=== PATIENT | male | born 1955 | race Caucasian/White ===

== ENCOUNTER 2018-04-06 04:21 | Observation (INO) | payer OTHER, SELFPAY ==
[2018-04-06] VITALS (9 sets, daily range): BP systolic 141–187; BP diastolic 81–94; PULSE 58–77; RESP 12–18; TEMP 36.3–36.8; O2SAT 95–100; BMI 29.5; BMI 29.4
--- NOTE | 2018-04-06 04:23 | RAD_ITS ---
STUDY: X-RAY CHEST REASON FOR EXAM: Male, 62 years old. Chest pressure, diaphoresis. TECHNIQUE: PA and lateral chest. COMPARISON: CT chest November 02, 2016. FINDINGS: The lungs are clear and expanded. There is no demonstrated pleural abnormality. Normal size heart. Normal mediastinum and caity. Normal visualized pulmonary arteries. Normal visualized aortic arch and descending thoracic aorta. Degenerative changes of the thoracic spine. Normal visualized ribs, clavicles, and shoulders. There is no demonstrated abnormality of the visualized soft tissue structures of the upper abdomen. RAD/Chest PA and Lateral IMPRESSION: No acute cardiopulmonary disease. Electronically Signed: Colin Ngo MD at 5:06 EDT , Service support ,
--- NOTE | 2018-04-06 04:23 | EKG12_ITS ---
Test Reason : CP Blood Pressure : / mmHG Vent. Rate : 077 BPM Atrial Rate : 077 BPM P-R Int : 154 ms QRS Dur : 084 ms QT Int : 378 ms P-R-T Axes : -23 005 061 degrees QTc Int : 427 ms Normal sinus rhythm Normal ECG Confirmed by MENDOZA BILLINGS, ONUR ([id number]), dictionary editor PATSY HEMPHILL ([id number]) on 04/07/2018 9:08:05 AM Referred By: HATTIE Confirmed By:ONUR DONALDSON MD
[2018-04-06] MEDS: Aspirin 81 MG TAB.CHEW 324 MG PO (04:31)
[2018-04-06 04:42] LABS: Absolute Lymphocyte Count 3.49 X10^3/ul (0.83-4.51); Absolute Neutrophil Count 3.6 X10^3/uL (2.0-7.7); Basophil# 0.06 X10^3/uL; Basophil% 0.7 % (0-1); Eosinophils% 6.9 % (0-5); Hematocrit 45.9 % (40-54); Hemoglobin 15.3 g/dl (13.0-16.5); Lymphocyte # 3.49 X10^3/ul (4.0); Mean Corp Hgb Conc 33.3 g/gl (32-36); Mean Corpuscular Hgb 29.3 pg (27.0-32.0); Mean Corpuscular Volume 87.9 fL (80-94); Mean Platelet Vol. 10.9 fl (6.2-12.0); Monocyte# 0.96 X10^3/uL; Neutrophil # 3.55 X10^3/uL (2.7-7.7); Neutrophil % 40.6 % (47-70); Platelet Count 217 K/mm3 (150-450); RBC Distribution Width CV 13.2 % (11.6-14.6); Red Blood Count 5.22 M/mm3 (4.6-6.2); White Blood Count 8.7 K/mm3 (4.4-11.0)
[2018-04-06 04:43] LABS: POSITIVE COUNT NO; POSITIVE DIFFERENTIAL NO; POSITIVE MORPHOLOGY NO
[2018-04-06 04:55] LABS: Anion Gap 7 (5-15); BUN 20 mg/dL (7-18); BUN/Creat Ratio 19.8 RATIO (10-20); Calcium,Total 9.1 mg/dL (8.5-10.1); Chloride 110 mmol/L (98-107); Creatinine, Serum 1.01 mg/dL (0.70-1.30); EST Glomerular Filtration Rate 80 mL/min (>60); Est Glom Filt Rate - Afr Amer 97 mL/min (>60); Estimated Creatinine Clearance 74.31 ml/min; Glucose 106 mg/dL (74-106); Potassium 3.8 mmol/L (3.5-5.1); Sodium Level 145 mmol/L (136-145)
--- NOTE | 2018-04-06 05:19 | ED.VISSUMM ---
- ER Visit Summary Date of Service: 04/06/18 Chief Complaint: Chest pain History of Present Illness: The patient is a 62 M presenting for evaluation secondary chest pain. Patient reports that 2-3 hours prior to arrival he developed chest pain. Patient states that he was at rest when this occurred, he described it as a tightness that was associated with a generalized feeling of diaphoresis. Patient states that it had no exacerbating relieving factors was associated with burping but denies any shortness of breath lightheadedness. Patient states that he does have a history of GERD, but this did not really feel consistent with that. Patient states that he has a underlying history of hypertension high cholesterol and is a current smoker. He has had a distant stress test, but nothing recently. He denies any DVT or PE risk factors. Review of systems otherwise negative. Physical Examination: Vital signs are within normal limits except for elevated blood pressure 187/92, patient is afebrile. General: Patient is well-nourished well-developed and in no acute distress. Head: Normocephalic, atraumatic Eyes: Pupils equal round and reactive bilaterally, extra occular motion intact bialterally ENT: Moist mucous membranes Neck: Supple, no lymphadenopathy, no JVD, no meningismus CVS: Heart regular rate and rhythm, no murmurs, rubs or gallops, radial pulses 2+ bilaterally Resp: Respirations nondistressed, lung sounds clear bilaterally Abdomen: Soft, nontender, nondistended, no palpable masses, normal bowel sounds Back: Nontender Extremities: Nontender, atraumatic, active full range of motion, no peripheral edema Skin: warm, no rashes, no petechia Neuro: Alert and oriented x 4, CN 2-12 intact, no lateralizing neurological defecits Psyc: Normal affect Test Results: EKG demonstrates sinus rhythm [address] segments normal T waves no evidence of acute changes from a prior EKG in 2012. PA and lateral chest x-ray by my personal review as well as radiology is negative. CBC, chemistry, troponin are found to be unremarkable. Emergency Department Course and Treatment: Patient presented for evaluation secondary chest pain. Patient's workup was negative as noted above. His MELL score is 1, his heart score is 4. He was chest pain-free upon reevaluation. Given the patient's moderate heart score I believe that he would benefit from admission for stress testing and cycling of his cardiac enzymes. I will discuss this with the hospitalist. Disposition: Admission Impression: 1. Chest pain This note was generated with [employer] dictation software. It may contain incorrect words, spelling, and punctuation that were not noted in review of the chart prior to signing ED Disposition - Plan for ED Patient: Chief Complaint: Chest Pain Referrals: Franky Villavicencio MD [Primary Care Provider] -
--- NOTE | 2018-04-06 05:46 | PCM.HP.STD ---
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 Denies associated shortness of breath, arrhythmia, near syncope or syncope. He had previous CT chest as a screening protocol and reported as bilateral lung apices scarring with slight worsening left apex. In ED, vital signs are stable. MELL score 1/7. EKG shows normal sinus rhythm at 77 bpm with no significant change from previous EKG of February 2011. He said he had a stress test done here probably about 8-10 years ago and was normal. There is no record in our system [] Past Medical History Past Medical History (Chronic Problems): Chronic Problems Hypertension (Chronic) Dyslipidemia (Chronic) Chronic B/L lung apices scarring in CT (Chronic) Allergies No Known Allergies Allergy (Verified 04/06/18 04:22) Home Medications: Ambulatory Orders Medication Instructions Recorded Rosuvastatin Calcium [Crestor] 40 mg PO DAILY 04/06/18 Valsartan [Diovan] 40 mg PO DAILY 04/06/18 Smoking Status: Current every day smoker - *Family History Paternal History Items: No pertinent history Review of Systems Constitutional: Denies: Chills, Fever, Weight Change HEENT: Denies: Head Aches, Sinus Congestion, Sinus Drainage Cardiovascular: Reports: Chest Pressure, Chest Tightness. Denies: Chest Pain, Palpitations Respiratory: Denies: Cough, Shortness of breath at rest, Sputum production Gastrointestinal: Denies: Abdominal Pain, Nausea, Vomiting Genitourinary: Denies: Dysuria Musculoskeletal: Denies: Joint Pain, Joint Tenderness Skin: Denies: Rash, Wounds Neurological: Denies: Numbness, Tingling, Focal weakness Psychiatric: Denies: Anxiety, Depression, Homicidal Ideations, Suicidal Ideations Hematologic/ Lymphatic: Denies: Easy Bruising, Easy Bleeding VTE Information - Inpt Only VTE Present on Admission: No VTE Mechan Device Prophylaxis: SCD's VTE Pharm Prophylaxis ordered?: Yes Patient Problems: Active and Suspected Problems Atypical chest pain (Acute) - Physical Exam General: Alert, Oriented x3, Cooperative HEENT: Atraumatic, PERRLA, EOMI, Normocephalic Neck: Supple, No JVD, Negative Carotid Bruits Lungs: Diminished, Rhonchi - Bilateral expiratory rhonchi present Cardiovascular: Regular rate, No murmurs Abdomen: Bowel Sounds Present, Soft, Non Tender, Non-Distended Extremities: No edema, Capillary Refill Less than 3 Seconds Skin: No rashes, No breakdown Musculoskeletal: No Tenderness to Palpation of Joints or Extremities Neurological: Cranial nerves II-XII grossly intact Psych/Mental Status: Normal Affect, Appropriate Vital Signs Temp Pulse Resp BP Pulse Ox 98.1 F 59 L 12 162/94 H 100 04/06/18 05:21 04/06/18 05:26 04/06/18 05:26 04/06/18 05:26 04/06/18 05:26 Oxygen Delivery Method Room Air Weight: 194 lb 0.108 oz Body Mass Index (BMI) 29.5 Laboratory Tests Past 24 Hrs 04/06/18 04/06/18 04/06/18 04:30 04:30 04:30 WBC 8.7 RBC 5.22 Hgb 15.3 Hct 45.9 MCV 87.9 MCH 29.3 MCHC 33.3 RDW 13.2 RDW Differential 43.0 Plt Count 217 MPV 10.9 Immature Gran % (Auto) 0.800 Neut % (Auto) 40.6 L Lymph % (Auto) 40.0 [place] % (Auto) 11.0 H Eos % (Auto) 6.9 H Baso % (Auto) 0.7 Absolute Neuts (auto) 3.6 Absolute Lymphs (auto) 3.49 Total Counted Not Reportable Sodium 145 Potassium 3.8 Chloride 110 H Carbon Dioxide 28.0 Anion Gap 7 BUN 20 H Creatinine 1.01 Estim Creat Clear Calc 74.31 Est GFR (MDRD) Af Amer 97 Est GFR (MDRD) Non-Af 80 BUN/Creatinine Ratio 19.8 Glucose 106 Calcium 9.1 Troponin I < 0.015 Triglycerides Pending Cholesterol Pending LDL Cholesterol Pending VLDL Cholesterol Pending HDL Cholesterol Pending TSH Pending Assessment/Plan All Active Problems Atypical chest pain (Acute) The patient is a 62 year old M with history of chronic a smoker probably about 40 pack years of smoking came to ER with chest pain/heaviness about 2-3 hours prior to arrival along with sweating and discomfort. Chest pain is localized without radiation, aggravating or relieving factor. 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 Denies associated shortness of breath, arrhythmia, near syncope or syncope. He had previous CT chest as a screening protocol and reported as bilateral lung apices scarring with slight worsening left apex. In ED, vital signs are stable. MELL score 2/7. EKG shows normal sinus rhythm at 77 bpm with no significant change from previous EKG of February 2011. He said he had a stress test done here probably about 8-10 years ago and was normal. There is no record in our system 1. Atypical chest pain, rule out acute coronary syndrome: The patient is being admitted to PCU as per chest pain protocol. Serial troponin enzymes. If troponins negative patient can have treadmill stress ECHO test. 2. Chronic smoker, bilateral lung apices and scarring with expiratory rhonchi suggestive of possible COPD: Bronchodilator as needed. Patient is advised PFT as an outpatient. Other chronic comorbidities include hypertension, dyslipidemia: Stable. Lipid profile today. Home medication reconciliation done. DVT prophylaxis: On heparin 5000 units subcutaneous twice daily and bilateral SCDs. This note was generated with [employer] dictation software. Every effort was made to ensure accuracy, however computerized ore fielder mistakes may persist. Code Visit OBSV E&M: 16507 Initial observation care L3
[2018-04-06 05:53] LABS: Cholesterol 234 mg/dL (200); High Density Lipoprotein 35 mg/dL; Triglycerides 188 mg/dL; Very Low Density Lipoprotein 38 mg/dL (5-40)
--- NOTE | 2018-04-06 06:00 | HP.PCM_ITS ---
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 Denies associated shortness of breath, arrhythmia, near syncope or syncope. He had previous CT chest as a screening protocol and reported as bilateral lung apices scarring with slight worsening left apex. In ED, vital signs are stable. MELL score 1/7. EKG shows normal sinus rhythm at 77 bpm with no significant change from previous EKG of February 2011. He said he had a stress test done here probably about 8-10 years ago and was normal. There is no record in our system [] Past Medical History Past Medical History (Chronic Problems): Chronic Problems Hypertension (Chronic) Dyslipidemia (Chronic) Chronic B/L lung apices scarring in CT (Chronic) Allergies No Known Allergies Allergy (Verified 04/06/18 04:22) Home Medications: Ambulatory Orders Medication Instructions Recorded Rosuvastatin Calcium [Crestor] 40 mg PO DAILY 04/06/18 Valsartan [Diovan] 40 mg PO DAILY 04/06/18 Smoking Status: Current every day smoker - *Family History Paternal History Items: No pertinent history Review of Systems Constitutional: Denies: Chills, Fever, Weight Change HEENT: Denies: Head Aches, Sinus Congestion, Sinus Drainage Cardiovascular: Reports: Chest Pressure, Chest Tightness. Denies: Chest Pain, Palpitations Respiratory: Denies: Cough, Shortness of breath at rest, Sputum production Gastrointestinal: Denies: Abdominal Pain, Nausea, Vomiting Genitourinary: Denies: Dysuria Musculoskeletal: Denies: Joint Pain, Joint Tenderness Skin: Denies: Rash, Wounds Neurological: Denies: Numbness, Tingling, Focal weakness Psychiatric: Denies: Anxiety, Depression, Homicidal Ideations, Suicidal Ideations Hematologic/ Lymphatic: Denies: Easy Bruising, Easy Bleeding VTE Information - Inpt Only VTE Present on Admission: No VTE Mechan Device Prophylaxis: SCD's VTE Pharm Prophylaxis ordered?: Yes Patient Problems: Active and Suspected Problems Atypical chest pain (Acute) - Physical Exam General: Alert, Oriented x3, Cooperative HEENT: Atraumatic, PERRLA, EOMI, Normocephalic Neck: Supple, No JVD, Negative Carotid Bruits Lungs: Diminished, Rhonchi - Bilateral expiratory rhonchi present Cardiovascular: Regular rate, No murmurs Abdomen: Bowel Sounds Present, Soft, Non Tender, Non-Distended Extremities: No edema, Capillary Refill Less than 3 Seconds Skin: No rashes, No breakdown Musculoskeletal: No Tenderness to Palpation of Joints or Extremities Neurological: Cranial nerves II-XII grossly intact Psych/Mental Status: Normal Affect, Appropriate Vital Signs Temp Pulse Resp BP Pulse Ox 98.1 F 59 L 12 162/94 H 100 04/06/18 05:21 04/06/18 05:26 04/06/18 05:26 04/06/18 05:26 04/06/18 05:26 Oxygen Delivery Method Room Air Weight: 194 lb 0.108 oz Body Mass Index (BMI) 29.5 Laboratory Tests Past 24 Hrs 04/06/18 04/06/18 04/06/18 04:30 04:30 04:30 WBC 8.7 RBC 5.22 Hgb 15.3 Hct 45.9 MCV 87.9 MCH 29.3 MCHC 33.3 RDW 13.2 RDW Differential 43.0 Plt Count 217 MPV 10.9 Immature Gran % (Auto) 0.800 Neut % (Auto) 40.6 L Lymph % (Auto) 40.0 [place] % (Auto) 11.0 H Eos % (Auto) 6.9 H Baso % (Auto) 0.7 Absolute Neuts (auto) 3.6 Absolute Lymphs (auto) 3.49 Total Counted Not Reportable Sodium 145 Potassium 3.8 Chloride 110 H Carbon Dioxide 28.0 Anion Gap 7 BUN 20 H Creatinine 1.01 Estim Creat Clear Calc 74.31 Est GFR (MDRD) Af Amer 97 Est GFR (MDRD) Non-Af 80 BUN/Creatinine Ratio 19.8 Glucose 106 Calcium 9.1 Troponin I < 0.015 Triglycerides Pending Cholesterol Pending LDL Cholesterol Pending VLDL Cholesterol Pending HDL Cholesterol Pending TSH Pending Assessment/Plan All Active Problems Atypical chest pain (Acute) The patient is a 62 year old M with history of chronic a smoker probably about 40 pack years of smoking came to ER with chest pain/heaviness about 2-3 hours prior to arrival along with sweating and discomfort. Chest pain is localized without radiation, aggravating or relieving factor. 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 Denies associated shortness of breath, arrhythmia, near syncope or syncope. He had previous CT chest as a screening protocol and reported as bilateral lung apices scarring with slight worsening left apex. In ED, vital signs are stable. MELL score 2/7. EKG shows normal sinus rhythm at 77 bpm with no significant change from previous EKG of February 2011. He said he had a stress test done here probably about 8-10 years ago and was normal. There is no record in our system 1. Atypical chest pain, rule out acute coronary syndrome: The patient is being admitted to PCU as per chest pain protocol. Serial troponin enzymes. If troponins negative patient can have treadmill stress ECHO test. 2. Chronic smoker, bilateral lung apices and scarring with expiratory rhonchi suggestive of possible COPD: Bronchodilator as needed. Patient is advised PFT as an outpatient. Other chronic comorbidities include hypertension, dyslipidemia: Stable. Lipid profile today. Home medication reconciliation done. DVT prophylaxis: On heparin 5000 units subcutaneous twice daily and bilateral SCDs. This note was generated with [employer] dictation software. Every effort was made to ensure accuracy, however computerized right of way man mistakes may persist. Code Visit OBSV E&M: 69400 Initial observation care L3
[2018-04-06 07:54] LABS: Magnesium 2.2 mg/dL (1.6-2.6)
--- NOTE | 2018-04-06 10:58 | PCM.PN.HOSP ---
Patient Problems: Active and Suspected Problems Atypical chest pain (Acute) Subjective: Patient with no acute events since admission per self and per nursing report the patient still does have chest discomfort but denies any further remarkable tightness or diaphoresis which he initially had at 1130 the evening prior. He does report that he has had epigastric discomfort in the past and was placed on dyspepsia medications per his primary care physician. He does report eating a more fatty meal the evening prior than his normal. Patient denies fevers, chills, nausea, emesis, abdominal pain, dyspnea. Objective: Physical Examination: General: awake, alert, oriented x 3 and cooperative, seated upright in bed in no apparent distress. Skin: normal color, turgor, no icterus, cyanosis. HEENT: AT/NC, EOMI, PERRLA, MMM, no carotid bruits. Lungs: CTA bilaterally, moderate effort, mild decrease BL bases, no rales, ronchi or wheezing. Heart: Regular rate and rhythm; no gallop, rub audible. Abdomen: soft, NTTP, ND, normal BS. Extremities: no cyanosis, clubbing, or edema. Neurological: patient awake, alert, oriented x 3; cognitive function intact; pupils equally reactive to light and accomodation; cranial nerves II-XII grossly normal, moving all 4 extremities, no focal deficits, strength preserved. Psychiatric: affect appears normal, no acute evidence of depressive or anxiety feelings. Vitals/I&O's: Vital Signs Temp Pulse Resp BP Pulse Ox 97.4 F L 67 16 141/81 H 97 04/06/18 06:15 04/06/18 10:52 04/06/18 06:33 04/06/18 06:15 04/06/18 06:15 Oxygen Delivery Method Room Air Weight: 193 lb 5.526 oz Body Mass Index (BMI) 29.4 Intake and Output for Last 24 Hours 04/04/18 04/05/18 04/06/18 23:59 23:59 23:59 Intake Total 0 / 0 Balance 0 / 0 Laboratory Results 04/06/18 07:18: Magnesium 2.2, Troponin I < 0.015, Free T4 1.00 04/06/18 10:30: Troponin I Pending Current Medications Albuterol/Ipratropium (Duoneb) 3 ml INHALATION Q4H PRN PRN PRN Reason: sob Aspirin (Ecotrin) 81 mg PO DAILY@0800 [facility] Atorvastatin Calcium (Lipitor) 80 mg PO DAILY@2200 [facility] Heparin Sodium (Porcine) (Heparin Na) 5,000 unit SC BID [facility] Sodium Chloride () 250 mls @ 15 mls/hr IV .[id number] PRN PRN Reason: SALINE FLUSH Nitroglycerin (Nitrostat) 0.4 mg SUBLINGUAL Q5M PRN PRN Reason: CHEST PAIN Sodium Chloride () 5 - 30 ml IV UD PRN PRN Reason: SALINE FLUSH Valsartan (Diovan) 40 mg PO DAILY [facility] Medical Necessity - Tobacco Use Smoking Status: Current every day smoker Assessment/Plan All Active Problems Atypical chest pain (Acute) The patient is a 62 y/o M w/ PMHx: Tobacco use, HLD, HTN, Chronic Apical Lung Scarring noted on imaging who presents to the [facility] ED on 04/06/18 AM w/ history of onset diffuse chest tightness with diaphoresis at ~ 11-11:30 pm the evening prior which resolved. (1) Chest Pain: EKG in ED with no acute evidence of ischemia, CXR w/ no acute findings, initial trop normal ?1. Admitted to PCU, placed on a monitored bed to assure no acute myocardial infarction with serial cardiac enzymes which have remained unremarkable and EKG unremarkable. Given unremarkable serial enzymes, patient underwent a.m. stress testing with results pending. AM FLP elevated despite high-dose statin. Mag 2.2. ASA, NG, morphine. If stress testing unremarkable will plan discharge to home with further workup outpatient per primary care physician. Famotidine twice daily initiated given patient history of dyspepsia. (2) Hypertension: BP elevated above goal therefore will increase home Diovan regimen from 40 mg to 80 mg p.o. daily, consider him in addition if remains above goal, PRN hydralazine. (3) Hyperlipidemia: Continue home statin regimen. AM FLP remarkable despite statin, suspect diet and lifestyle changes needed. (4) GERD: Noted history of dyspepsia occasionally, started on regimen outpatient per his PCP PRN. Start famotidine. (5) Tobacco Abuse: Encouraged cessation, inpatient consultation per RT, NR deferred given presentation. (6) DVT prophylaxis: SCD, heparin. PROLONGED CARE TIME: Patient evaluation, discussion with family, review of history with patient prolonged care time above initial 70 minute evaluation: 60 minutes. Code Visit Procedures: 18663 Prolonged InPt Service; first hour
--- NOTE | 2018-04-06 11:19 | PN_ITS ---
Patient Problems: Active and Suspected Problems Atypical chest pain (Acute) Subjective: Patient with no acute events since admission per self and per nursing report the patient still does have chest discomfort but denies any further remarkable tightness or diaphoresis which he initially had at 1130 the evening prior. He does report that he has had epigastric discomfort in the past and was placed on dyspepsia medications per his primary care physician. He does report eating a more fatty meal the evening prior than his normal. Patient denies fevers, chills , nausea, emesis, abdominal pain, dyspnea. Objective: Physical Examination: General: awake, alert, oriented x 3 and cooperative, seated upright in bed in no apparent distress. Skin: normal color, turgor, no icterus, cyanosis. HEENT: AT/NC, EOMI, PERRLA, MMM, no carotid bruits. Lungs: CTA bilaterally, moderate effort, mild decrease BL bases, no rales, ronchi or wheezing. Heart: Regular rate and rhythm; no gallop, rub audible. Abdomen: soft, NTTP, ND, normal BS. Extremities: no cyanosis, clubbing, or edema. Neurological: patient awake, alert, oriented x 3; cognitive function intact; pupils equally reactive to light and accomodation; cranial nerves II-XII grossly normal, moving all 4 extremities, no focal deficits, strength preserved. Psychiatric: affect appears normal, no acute evidence of depressive or anxiety feelings. Vitals/I&O's: Vital Signs Temp Pulse Resp BP Pulse Ox 97.4 F L 67 16 141/81 H 97 04/06/18 06:15 04/06/18 10:52 04/06/18 06:33 04/06/18 06:15 04/06/18 06:15 Oxygen Delivery Method Room Air Weight: 193 lb 5.526 oz Body Mass Index (BMI) 29.4 Intake and Output for Last 24 Hours 04/04/18 04/05/18 04/06/18 23:59 23:59 23:59 Intake Total 0 / 0 Balance 0 / 0 Laboratory Results 04/06/18 07:18: Magnesium 2.2, Troponin I < 0.015, Free T4 1.00 04/06/18 10:30: Troponin I Pending Current Medications Albuterol/Ipratropium (Duoneb) 3 ml INHALATION Q4H PRN PRN PRN Reason: sob Aspirin (Ecotrin) 81 mg PO DAILY@0800 [facility] Atorvastatin Calcium (Lipitor) 80 mg PO DAILY@2200 [facility] Heparin Sodium (Porcine) (Heparin Na) 5,000 unit SC BID [facility] Sodium Chloride () 250 mls @ 15 mls/hr IV .[id number] PRN PRN Reason: SALINE FLUSH Nitroglycerin (Nitrostat) 0.4 mg SUBLINGUAL Q5M PRN PRN Reason: CHEST PAIN Sodium Chloride () 5 - 30 ml IV UD PRN PRN Reason: SALINE FLUSH Valsartan (Diovan) 40 mg PO DAILY [facility] Medical Necessity - Tobacco Use Smoking Status: Current every day smoker Assessment/Plan All Active Problems Atypical chest pain (Acute) The patient is a 62 y/o M w/ PMHx: Tobacco use, HLD, HTN, Chronic Apical Lung Scarring noted on imaging who presents to the [facility] ED on 04/06/18 AM w/ history of onset diffuse chest tightness with diaphoresis at ~ 11-11:30 pm the evening prior which resolved. (1) Chest Pain: EKG in ED with no acute evidence of ischemia, CXR w/ no acute findings, initial trop normal ?1. Admitted to PCU, placed on a monitored bed to assure no acute myocardial infarction with serial cardiac enzymes which have remained unremarkable and EKG unremarkable. Given unremarkable serial enzymes, patient underwent a.m. stress testing with results pending. AM FLP elevated despite high-dose statin. Mag 2.2. ASA, NG, morphine. If stress testing unremarkable will plan discharge to home with further workup outpatient per primary care physician. Famotidine twice daily initiated given patient history of dyspepsia. (2) Hypertension: BP elevated above goal therefore will increase home Diovan regimen from 40 mg to 80 mg p.o. daily, consider him in addition if remains above goal, PRN hydralazine. (3) Hyperlipidemia: Continue home statin regimen. AM FLP remarkable despite statin, suspect diet and lifestyle changes needed. (4) GERD: Noted history of dyspepsia occasionally, started on regimen outpatient per his PCP PRN. Start famotidine. (5) Tobacco Abuse: Encouraged cessation, inpatient consultation per RT, NR deferred given presentation. (6) DVT prophylaxis: SCD, heparin. PROLONGED CARE TIME: Patient evaluation, discussion with family, review of history with patient prolonged care time above initial 70 minute evaluation: 60 minutes. Code Visit Procedures: 10280 Prolonged InPt Service; first hour
[2018-04-06] MEDS: VALSARTAN 40 MG TABLET PO (12:00)
[2018-04-06] MEDS: Famotidine 20 MG Tablet PO (12:01)
--- NOTE | 2018-04-06 12:58 | STRESSREP ---
Stress Test Report Exercise myocardial perfusion stress test. 62-year-old man with a history of chest pain. Medications aspirin Lipitor Diovan. Stress protocol: Resting EKG demonstrates normal sinus rhythm with a rate of 65 beats minute normal intervals and noted resting blood pressure is 140/98 mmHg. The patient exercised according to the regular Bon protocol for total duration of 6 minutes and 30 seconds attaining a maximum heart rate of 142 beats minute which was 89% of maximum predicted heart rate and a workload of 7.7 metabolic equivalents. At rest there were no ST or T-wave changes noted suggest ischemia at peak exercise upsloping ST changes only were noted with no meet the criteria for ischemia no clinical angina was noted no arrhythmias were noted. The resting blood pressure is 140/98 with a peak blood pressure of 220/106 rate pressure product of 29,400. No clinical angina was noted. Myocardial perfusion stress test. 12.0 mCi of technetium 99m sestamibi was injected. The patient exercised according to regular Bon protocol for total duration of 6 minutes and 30 seconds at peak exercise 33.6 mCi of technetium 99m sestamibi was injected stress images were obtained stress and rest images were reconstructed and compared in the short axis vertical long and horizontal long axis. Gated images were also obtained pre- Perfusion SPECT analysis: Review of the stress images demonstrate normal uptake of tracer noted in all areas of the myocardium. The resting images similarly demonstrate normal uptake of tracer noted in all areas of the myocardium. No areas of reversibility are noted suggest ischemia. Gated SPECT analysis: The gated ejection fraction is estimated to be 66%. Conclusion: Normal exercise myocardial perfusion stress test at a moderate workload. Preserved ejection fraction.
--- NOTE | 2018-04-06 13:15 | PCM.DC ---
- Discharge Diagnoses Current Active Problems: Current Active and Chronic Problems (1) Chest Pain, Atypical, Possibly secondary to GERD versus Musculoskeletal etiology (2) Hypertension (3) Hyperlipidemia (4) GERD (5) Tobacco Abuse (6) Chronic B/L lung apices scarring You will use the following diet at home:: Cardiac Your food should be the consistency of: Regular Your liquids should be the consistency of: Regular/Thin Discharge Activity: Return to Normal Activity May resume sexual activity in: No Restrictions Weight Bearing Status: Weight bearing as tolerated Call your doctor if you observe: Fever of 101 or Higher, Inability to urinate, Inability to have a bowel movement, Shortness of breath, Dizziness, Fainting spells, Chest pain, Uncontrolled pain Instructions: ED Chest Pain Atypical Unkn Cause, ED Chest Pain NonCardiac, Eating Heart-Healthy Food: Using the DASH Plan, Cholesterol Medications, Low-Fat Cooking Tips, Risk Factors for Heart Disease, What Is GERD?, Lifestyle Changes for Controlling GERD, Medications for GERD, Tips to Control Acid Reflux, Discharge Instructions for Gastroesophageal Reflux Disease (GERD) Additional Instructions: Please follow-up with primary care physician as noted and have repeat BMP given medication (ARB) adjustments. Allergies/Adverse Reactions: Allergies No Known Allergies Allergy (Verified 04/06/18 04:22) Medications to take at Discharge Aspirin [Aspirin, Baby] 81 mg PO DAILY@0800 04/06/18 Famotidine [Pepcid] 20 mg PO BID #60 tab 04/06/18 Nicotine [Nicotine Patch] 1 ea TD DAILY #14 patch.td24 04/06/18 Rosuvastatin Calcium [Crestor] 40 mg PO DAILY 04/06/18 Valsartan [Diovan] 80 mg PO QHS #60 tab 04/06/18 The following prescriptions were given: Nicotine [Nicotine Patch] 1 ea TD DAILY #14 patch.td24 Valsartan [Diovan] 80 mg PO QHS #60 tab Famotidine [Pepcid] 20 mg PO BID #60 tab Primary Care Physician: Franky Villavicencio MD [Primary Care Provider] - Please follow up with your Primary Care Physician in: Follow-up within 3-5 days to review admission. Proposed Discharge Date: 04/06/18
--- NOTE | 2018-04-06 13:22 | DCINST_ITS ---
- Discharge Diagnoses Current Active Problems: Current Active and Chronic Problems (1) Chest Pain, Atypical, Possibly secondary to GERD versus Musculoskeletal etiology (2) Hypertension (3) Hyperlipidemia (4) GERD (5) Tobacco Abuse (6) Chronic B/L lung apices scarring You will use the following diet at home:: Cardiac Your food should be the consistency of: Regular Your liquids should be the consistency of: Regular/Thin Discharge Activity: Return to Normal Activity May resume sexual activity in: No Restrictions Weight Bearing Status: Weight bearing as tolerated Call your doctor if you observe: Fever of 101 or Higher, Inability to urinate, Inability to have a bowel movement, Shortness of breath, Dizziness, Fainting spells, Chest pain, Uncontrolled pain Instructions: ED Chest Pain Atypical Unkn Cause, ED Chest Pain NonCardiac, Eating Heart-Healthy Food: Using the DASH Plan, Cholesterol Medications, Low- Fat Cooking Tips, Risk Factors for Heart Disease, What Is GERD?, Lifestyle Changes for Controlling GERD, Medications for GERD, Tips to Control Acid Reflux , Discharge Instructions for Gastroesophageal Reflux Disease (GERD) Additional Instructions: Please follow-up with primary care physician as noted and have repeat BMP given medication (ARB) adjustments. Allergies/Adverse Reactions: Allergies No Known Allergies Allergy (Verified 04/06/18 04:22) Medications to take at Discharge Aspirin [Aspirin, Baby] 81 mg PO DAILY@0800 04/06/18 Famotidine [Pepcid] 20 mg PO BID #60 tab 04/06/18 Nicotine [Nicotine Patch] 1 ea TD DAILY #14 patch.td24 04/06/18 Rosuvastatin Calcium [Crestor] 40 mg PO DAILY 04/06/18 Valsartan [Diovan] 80 mg PO QHS #60 tab 04/06/18 The following prescriptions were given: Nicotine [Nicotine Patch] 1 ea TD DAILY #14 patch.td24 Valsartan [Diovan] 80 mg PO QHS #60 tab Famotidine [Pepcid] 20 mg PO BID #60 tab Primary Care Physician: Franky Villavicencio MD [Primary Care Provider] - Please follow up with your Primary Care Physician in: Follow-up within 3-5 days to review admission. Proposed Discharge Date: 04/06/18
--- NOTE | 2018-04-06 13:23 | PCM.DC.SUM ---
Discharge Date and Diagnosis - Problem List Patient Problems: Active and Suspected Problems Atypical chest pain (Acute) Date of Admission: 04/06/18 Date of Discharge: 04/06/18 - Primary Discharge Diagnosis Active and Suspected Problems (1) Chest Pain, Atypical, Possibly secondary to GERD versus Musculoskeletal etiology (2) Hypertension (3) Hyperlipidemia (4) GERD (5) Tobacco Abuse (6) Chronic B/L lung apices scarring - Secondary Discharge Diagnosis Chronic Problems Hypertension (Chronic) Dyslipidemia (Chronic) Chronic B/L lung apices scarring in CT (Chronic) Hospital Course and Treatment Imaging Results: 04/06/18 06:46 Nuclear Stress Test - Chemical [NM] Routine Operations: None Procedures: EKG, Stress test Summary of Care Provided: The patient is a 62 y/o M w/ PMHx: Tobacco use, HLD, HTN, Chronic Apical Lung Scarring noted on imaging who presented to the [facility] ED on 04/06/18 AM w/ history of onset diffuse chest tightness with diaphoresis at ~ 11-11:30 pm the evening prior which resolved. EKG in ED with no acute evidence of ischemia, CXR w/ no acute findings, initial trop normal ?1. Admitted to PCU, placed on a monitored bed to assure no acute myocardial infarction with serial cardiac enzymes which have remained unremarkable and EKG unremarkable. Given unremarkable serial enzymes, patient underwent a.m. stress testing no evidence of inducible ischemia. AM FLP elevated despite high-dose statin with recommendations for diet and lifestyle changes with several handouts given. Mag 2.2. During admission noted BP elevated above goal therefore will increase home Diovan regimen from 40 mg to 80 mg p.o. daily with recommendation for repeat BMP given adjustments to our. Noted history of dyspepsia occasionally, started famotidine w/ rx given, encouraged continued PCP evaluation to determine if EGD needed in the future. Encouraged tobacco cessation, inpatient consultation per RT, NR rx given upon discharge. Patient discharged home in stable condition with follow-up with primary care physician within 3-5 days to review admission. Discharge Activity: Return to Normal Activity May resume sexual activity in: No Restrictions Weight Bearing Status: Weight bearing as tolerated Call your doctor if you observe: Fever of 101 or Higher, Inability to urinate, Inability to have a bowel movement, Shortness of breath, Dizziness, Fainting spells, Chest pain, Uncontrolled pain Home Medications: Medications to take at Discharge Aspirin [Aspirin, Baby] 81 mg PO DAILY@0800 04/06/18 Famotidine [Pepcid] 20 mg PO BID #60 tab 04/06/18 Nicotine [Nicotine Patch] 1 ea TD DAILY #14 patch.td24 04/06/18 Rosuvastatin Calcium [Crestor] 40 mg PO DAILY 04/06/18 Valsartan [Diovan] 80 mg PO QHS #60 tab 04/06/18 Following Prescrptions Were Given to Patient: Nicotine [Nicotine Patch] 1 ea TD DAILY #14 patch.td24 Valsartan [Diovan] 80 mg PO QHS #60 tab Famotidine [Pepcid] 20 mg PO BID #60 tab Primary Care Physician: Franky Villavicencio MD [Primary Care Provider] - Please follow up with your Primary Care Physician in: Follow-up within 3-5 days to review admission. Patient Instructions: Cholesterol Medications, Low-Fat Cooking Tips, What Is GERD?, Lifestyle Changes for Controlling GERD, Medications for GERD, Tips to Control Acid Reflux, Risk Factors for Heart Disease, Eating Heart-Healthy Food: Using the DASH Plan, Discharge Instructions for Gastroesophageal Reflux Disease (GERD), ED Chest Pain NonCardiac, ED Chest Pain Atypical Unkn Cause Disposition: Home Minutes spent on discharge:: 20 Patient Condition:: Fair Medical Necessity - Tobacco Use Smoking Status: Current every day smoker Meaningful Use Info Meaningful Use Diagnoses (Choose all that apply): None applicable Code Visit OBSV E&M: 89733 Observ/hosp same date L3
--- NOTE | 2018-04-06 13:27 | DS.PCM_ITS ---
Discharge Date and Diagnosis - Problem List Patient Problems: Active and Suspected Problems Atypical chest pain (Acute) Date of Admission: 04/06/18 Date of Discharge: 04/06/18 - Primary Discharge Diagnosis Active and Suspected Problems (1) Chest Pain, Atypical, Possibly secondary to GERD versus Musculoskeletal etiology (2) Hypertension (3) Hyperlipidemia (4) GERD (5) Tobacco Abuse (6) Chronic B/L lung apices scarring - Secondary Discharge Diagnosis Chronic Problems Hypertension (Chronic) Dyslipidemia (Chronic) Chronic B/L lung apices scarring in CT (Chronic) Hospital Course and Treatment Imaging Results: 04/06/18 06:46 Nuclear Stress Test - Chemical [NM] Routine Operations: None Procedures: EKG, Stress test Summary of Care Provided: The patient is a 62 y/o M w/ PMHx: Tobacco use, HLD, HTN, Chronic Apical Lung Scarring noted on imaging who presented to the [facility] ED on 04/06/18 AM w/ history of onset diffuse chest tightness with diaphoresis at ~ 11-11:30 pm the evening prior which resolved. EKG in ED with no acute evidence of ischemia, CXR w/ no acute findings, initial trop normal ?1. Admitted to PCU, placed on a monitored bed to assure no acute myocardial infarction with serial cardiac enzymes which have remained unremarkable and EKG unremarkable. Given unremarkable serial enzymes, patient underwent a.m. stress testing no evidence of inducible ischemia. AM FLP elevated despite high-dose statin with recommendations for diet and lifestyle changes with several handouts given. Mag 2.2. During admission noted BP elevated above goal therefore will increase home Diovan regimen from 40 mg to 80 mg p.o. daily with recommendation for repeat BMP given adjustments to our. Noted history of dyspepsia occasionally, started famotidine w/ rx given, encouraged continued PCP evaluation to determine if EGD needed in the future. Encouraged tobacco cessation, inpatient consultation per RT, NR rx given upon discharge. Patient discharged home in stable condition with follow- up with primary care physician within 3-5 days to review admission. Discharge Activity: Return to Normal Activity May resume sexual activity in: No Restrictions Weight Bearing Status: Weight bearing as tolerated Call your doctor if you observe: Fever of 101 or Higher, Inability to urinate, Inability to have a bowel movement, Shortness of breath, Dizziness, Fainting spells, Chest pain, Uncontrolled pain Home Medications: Medications to take at Discharge Aspirin [Aspirin, Baby] 81 mg PO DAILY@0800 04/06/18 Famotidine [Pepcid] 20 mg PO BID #60 tab 04/06/18 Nicotine [Nicotine Patch] 1 ea TD DAILY #14 patch.td24 04/06/18 Rosuvastatin Calcium [Crestor] 40 mg PO DAILY 04/06/18 Valsartan [Diovan] 80 mg PO QHS #60 tab 04/06/18 Following Prescrptions Were Given to Patient: Nicotine [Nicotine Patch] 1 ea TD DAILY #14 patch.td24 Valsartan [Diovan] 80 mg PO QHS #60 tab Famotidine [Pepcid] 20 mg PO BID #60 tab Primary Care Physician: Franky Villavicencio MD [Primary Care Provider] - Please follow up with your Primary Care Physician in: Follow-up within 3-5 days to review admission. Patient Instructions: Cholesterol Medications, Low-Fat Cooking Tips, What Is GERD?, Lifestyle Changes for Controlling GERD, Medications for GERD, Tips to Control Acid Reflux, Risk Factors for Heart Disease, Eating Heart-Healthy Food: Using the DASH Plan, Discharge Instructions for Gastroesophageal Reflux Disease (GERD), ED Chest Pain NonCardiac, ED Chest Pain Atypical Unkn Cause Disposition: Home Minutes spent on discharge:: 20 Patient Condition:: Fair Medical Necessity - Tobacco Use Smoking Status: Current every day smoker Meaningful Use Info Meaningful Use Diagnoses (Choose all that apply): None applicable Code Visit OBSV E&M: 02505 Observ/hosp same date L3
== END 2018-04-06 13:21 | disposition home or self-care (01) ==
LOC: ED 05:01 → PCU 05:54
PROVIDERS: Admitting Provider Internal Medicine; Emergency Provider Emergency Medicine; Family Provider Family Medicine; PCP Family Medicine; Visit Provider Family Medicine
DX: R07.89 Other chest pain (principal); F17.200 Nicotine dependence, unspecified, uncomplicated; E78.5 Hyperlipidemia, unspecified; I10 Essential (primary) hypertension; K21.9 Gastro-esophageal reflux disease without esophagitis; Z79.899 Other long term (current) drug therapy; Z79.82 Long term (current) use of aspirin; J98.4 Other disorders of lung
CPT/HCPCS: 36415; 71046; 78452; 80048; 80061; 83735; 84439; 84443; 84484; 85025; 93005; 93017; 99218; 99285; A9500; A4216; G0378; J2785

== ENCOUNTER → 2018-06-09 08:40 | Outpatient (CLI) | payer OTHER, SELFPAY ==
[2018-06-09 10:56] LABS: ALB/GLOB Ratio 1.1 RATIO (0.9-2.4); AST(SGOT) 27 U/L (15-37); Alanine Aminotransfer ALT/SGPT 41 U/L (16-61); Albumin, Serum 3.8 g/dL (3.2-5.0); Alkaline Phosphatase 106 U/L (45-117); Anion Gap 7 (5-15); BUN 17 mg/dL (7-18); BUN/Creat Ratio 18.7 RATIO (10-20); Chloride 106 mmol/L (98-107); Cholesterol 167 mg/dL (200); Creatinine, Serum 0.91 mg/dL (0.70-1.30); EST Glomerular Filtration Rate 90 mL/min (>60); Est Glom Filt Rate - Afr Amer 109 mL/min (>60); Globulin 3.6 g/dL (2.2-4.2); Glucose 96 mg/dL (74-106); High Density Lipoprotein 38 mg/dL; PSA,Total - Annual Screen 0.47 ng/mL (0.00-4.00); Potassium 3.9 mmol/L (3.5-5.1); Protein, Total 7.4 g/dL (6.4-8.2); Sodium Level 139 mmol/L (136-145); Thyroid Stim Hormone (TSH) 1.71 uIU/mL (0.358-3.74); Triglycerides 135 mg/dL; Very Low Density Lipoprotein 27 mg/dL (5-40)
== END ==
PROVIDERS: Family Provider Family Medicine; PCP Family Medicine; Visit Provider Family Medicine
DX: I10 Essential (primary) hypertension (principal); R94.6 Abnormal results of thyroid function studies; Z12.5 Encounter for screening for malignant neoplasm of prostate
CPT/HCPCS: 36415; 80053; 80061; 84153; 84443; G0103

== ENCOUNTER → 2018-08-09 11:40 | Outpatient (CLI) | payer OTHER, SELFPAY ==
[2018-08-09 14:15] LABS: Anion Gap 7 (5-15); BUN 18 mg/dL (7-18); BUN/Creat Ratio 20.5 RATIO (10-20); Calcium,Total 9.4 mg/dL (8.5-10.1); Chloride 105 mmol/L (98-107); Creatinine, Serum 0.88 mg/dL (0.70-1.30); EST Glomerular Filtration Rate 94 mL/min (>60); Est Glom Filt Rate - Afr Amer 113 mL/min (>60); Glucose 105 mg/dL (74-106); Magnesium 2.1 mg/dL (1.6-2.6); Potassium 3.8 mmol/L (3.5-5.1); Sodium Level 138 mmol/L (136-145)
== END ==
PROVIDERS: Family Provider Family Medicine; PCP Family Medicine; Visit Provider Family Medicine
DX: I10 Essential (primary) hypertension (principal); R00.2 Palpitations
CPT/HCPCS: 36415; 80048; 83735

== ENCOUNTER → 2018-12-15 09:00 | Outpatient (CLI) | payer OTHER, SELFPAY ==
[2018-04-06 06:15] VITALS: BMI 29.4
[2018-12-15 10:25] LABS: ALB/GLOB Ratio 1.3 RATIO (0.9-2.4); AST(SGOT) 26 U/L (15-37); Alanine Aminotransfer ALT/SGPT 40 U/L (16-61); Albumin, Serum 3.9 g/dL (3.2-5.0); Alkaline Phosphatase 118 U/L (45-117); Anion Gap 6 (5-15); BUN 15 mg/dL (7-18); BUN/Creat Ratio 17.2 RATIO (10-20); Calcium,Total 9.1 mg/dL (8.5-10.1); Chloride 106 mmol/L (98-107); Creatinine, Serum 0.87 mg/dL (0.70-1.30); EST Glomerular Filtration Rate 94 mL/min (>60); Est Glom Filt Rate - Afr Amer 114 mL/min (>60); Globulin 3.1 g/dL (2.2-4.2); Glucose 86 mg/dL (74-106); Potassium 4.1 mmol/L (3.5-5.1); Sodium Level 140 mmol/L (136-145)
== END ==
PROVIDERS: Family Provider Family Medicine; PCP Family Medicine; Referring Provider Family Medicine; Visit Provider Family Medicine
DX: I10 Essential (primary) hypertension (principal)
CPT/HCPCS: 36415; 80053

== ENCOUNTER → 2019-12-14 08:33 | Outpatient (CLI) | payer OTHER, SELFPAY ==
[2018-04-06 06:15] VITALS: BMI 29.4
[2019-12-14 10:11] LABS: ALB/GLOB Ratio 1.2 RATIO (0.9-2.4); AST(SGOT) 21 U/L (15-37); Alanine Aminotransfer ALT/SGPT 44 U/L (16-61); Albumin, Serum 4.1 g/dL (3.2-5.0); Alkaline Phosphatase 114 U/L (45-117); Anion Gap 4 (5-15); BUN 19 mg/dL (7-18); BUN/Creat Ratio 18.3 RATIO (10-20); Calcium,Total 9.4 mg/dL (8.5-10.1); Chloride 104 mmol/L (98-107); Creatinine, Serum 1.04 mg/dL (0.70-1.30); EST Glomerular Filtration Rate 77 mL/min (>60); Est Glom Filt Rate - Afr Amer 93 mL/min (>60); Globulin 3.4 g/dL (2.2-4.2); Glucose 104 mg/dL (74-106); PSA,Total - Annual Screen 0.56 ng/mL (0.00-4.00); Potassium 3.7 mmol/L (3.5-5.1); Protein, Total 7.5 g/dL (6.4-8.2); Sodium Level 137 mmol/L (136-145)
== END ==
PROVIDERS: PCP Family Medicine; Referring Provider Family Medicine; Visit Provider Family Medicine
DX: I10 Essential (primary) hypertension (principal); Z12.5 Encounter for screening for malignant neoplasm of prostate
CPT/HCPCS: 36415; 80053; 84153; G0103

== ENCOUNTER → 2021-01-13 08:42 | Outpatient (CLI) | payer OTHER, SELFPAY ==
[2018-04-06 06:15] VITALS: BMI 29.4
[2021-01-13 10:28] LABS: ALB/GLOB Ratio 1.1 RATIO (0.9-2.4); AST(SGOT) 27 U/L (15-37); Alanine Aminotransfer ALT/SGPT 44 U/L (16-61); Alkaline Phosphatase 131 U/L (45-117); Anion Gap 6 (5-15); BUN 19 mg/dL (7-18); Calcium,Total 9.4 mg/dL (8.5-10.1); Chloride 105 mmol/L (98-107); Cholesterol 270 mg/dL (200); EST Glomerular Filtration Rate 90 mL/min (>60); Est Glom Filt Rate - Afr Amer 109 mL/min (>60); Globulin 3.6 g/dL (2.2-4.2); Glucose 106 mg/dL (74-106); High Density Lipoprotein 42 mg/dL; PSA,Total - Annual Screen 0.58 ng/mL (0.00-4.00); Potassium 3.9 mmol/L (3.5-5.1); Protein, Total 7.6 g/dL (6.4-8.2); Sodium Level 138 mmol/L (136-145); Triglycerides 177 mg/dL; Very Low Density Lipoprotein 35 mg/dL (5-40)
== END ==
PROVIDERS: PCP Family Medicine; Referring Provider Family Medicine; Visit Provider Family Medicine
DX: E78.5 Hyperlipidemia, unspecified (principal); Z12.5 Encounter for screening for malignant neoplasm of prostate
CPT/HCPCS: 36415; 80053; 80061; 84153; G0103

== ENCOUNTER 2022-01-20 10:02 | Emergency (ER) | payer OTHER, SELFPAY ==
[2022-01-20 10:03] VITALS: BP 206/96; PULSE 83; RESP 16; TEMP 36.6; O2SAT 97; BMI 28.1
--- NOTE | 2022-01-20 10:38 | RAD_ITS ---
STUDY: X-RAY - RIGHT HAND, ATTENTION INDEX FINGER REASON FOR EXAM: Male, 66 years old. Injury/Pain -- index finger TECHNIQUE: 3 view(s) of the finger were obtained. COMPARISON: None. FINDINGS: Normal metacarpal head. Normal metacarpophalangeal joint. Normal proximal phalanx. Normal middle phalanx. Nondisplaced oblique fracture of the distal phalanx of the index finger. Normal proximal interphalangeal joint. Normal distal interphalangeal joint. RAD/Finger(s) Min 2 Views IMPRESSION: Nondisplaced oblique fracture of the distal phalanx of the index finger. Electronically Signed: Benson Thomas MD at 11:20 EDT ,
--- NOTE | 2022-01-20 10:41 | EX.ED.UPPERE ---
HPI History of Present Illness Chief Complaint: Laceration Informant: patient Narrative Narrative: Patient is a 66-year-old male with history of hypertension and hyperlipidemia presenting with laceration to his right index finger. Patient is right-hand dominant. He states he was using a cordless drill to back out a nail when his index finger became wedged between 2 sharp pieces of shelf and the drill was spinning around it. He sustained a laceration to his finger and the nail was ripped off. He has associated throbbing pain. This was approximately 1 hour prior to my evaluation. He believes his tetanus is up-to-date. Denies any numbness or difficulty moving the finger. No other complaints at this time. Tetanus Immunization: <5 years [facility] Medical History HTN (hypertension) Home Medications aspirin 81 mg PO DAILY@0800 04/06/18 [History Last Taken Unknown] famotidine 20 mg PO BID #60 tab 04/06/18 [Rx Last Taken Unknown] nicotine 1 ea TD DAILY #14 patch.td24 04/06/18 [Rx Last Taken Unknown] rosuvastatin [Crestor] 40 mg PO DAILY 04/06/18 [History Last Taken 04/06/18] valsartan 80 mg PO QHS #60 tab 04/06/18 [Rx Last Taken Unknown] cephalexin 500 mg PO Q6H 7 Days #28 cap 01/20/22 [Rx Last Taken Unknown] hydrocodone-acetaminophen 1 tab PO Q8H PRN 3 Days #9 tab 01/20/22 [Rx Last Taken Unknown] Allergy/AdvReac Type Severity Reaction Status Date / Time No Known Allergies Allergy Verified 01/20/22 10:03 Social History Smoking Status: Current every day smoker tobacco type: cigarettes ROS ROS ED Constitutional Constitutional ED: Denies chills or fever(s) Eyes Eyes: Denies change in vision Cardiovascular Cardiovascular: Denies chest pain Respiratory/Chest Respiratory/Chest: Denies dyspnea Gastrointestinal Gastrointestinal: Denies abdominal pain or vomiting Musculoskeletal Musculoskeletal: Reports other Details: Right index finger injury/pain Integumentary Reports other Details: Laceration to the right index finger, missing nail of the right index finger Neurologic Neurologic: Denies paresthesias or weakness Hematologic/Lymphatic Hematologic/Lymphatic: Denies easy bleeding or easy bruising EXAM Physical Exam Const Vital Signs: 01/20/22 10:03 Temperature 97.9 F Temperature Source Temporal Pulse Rate 83 Respiratory Rate 16 Blood Pressure 206/96 H Blood Pressure Mean 132 Pulse Ox 97 Oxygen Delivery Method Room Air Positive well nourished and well developed General Appearance ED: well developed and NAD HEENT normocephalic and atraumatic Eyes PERRL Neck full ROM and supple Chest Wall inspection of chest normal Resp normal respiratory effort Cardio regular rate and regular rhythm Extremity full ROM Extremity Narrative: No obvious bony deformity. Right index finger?flexion and extension appear to be intact of the PIP and DIP Skin Skin Narrative: The right nail has been removed with exposure of the nailbed. There is a linear 4 cm laceration running from the middle right phalange through the nailbed along the dorsal aspect of the finger. No significant bleeding at this time. There is also a superficial abrasion over the dorsal right index PIP MDM MDM MDM Narrative Medical decision making narrative: Patient evaluated for injury to his right index finger. He believes tetanus is up-to-date. Will obtain x-ray to look for underlying fracture. Localized wound care applied with sutures and attempt to repair the nailbed. This is a complex laceration. See procedure note. Patient is given a dose of Tylenol in the emergency room. X-ray does show an oblique fracture through the distal phalanges. This is interpreted by myself as well as radiology. Patient started on Keflex for open fracture. Case is discussed with Dr. Chung who is agreeable this plan of care. Patient is placed in aluminum finger splint. Procedures Lacerations right index finger: Length: 1.57 in Depth: Skin Shape: Linear Prep: Shure-Clens Laceration repair: Digital block, Irrigated and Local Irrigated (ml): 999 Suture Information: Ethilon (2), Simple and 4-0 Comment: 3 Chromic Gut sutures placed for nailbed repair. Aluminum trimmed to size and placed in the nail fold to help keep it open. This was then sutured in place with chromic gut. Wound then covered in Xeroform and then splinted. Discharge Plan Triage Chief Complaint: Laceration ED Provider: Anjelica Leblanc Dx/Rx/DC Orders Clinical Impression: Laceration of right index finger, Avulsion of nail bed, Fracture, finger, distal phalanx, open Instructions: ED Open Hand Fracture (Adult), ED Laceration, Hand: All Closures, ED Detached Fingernail or Toenail Prescriptions: New cephalexin 500 mg capsule 500 mg PO Q6H 7 Days Qty: 28 RF: 0 hydrocodone-acetaminophen 5-325 mg tablet 1 tab PO Q8H PRN (Reason: pain) 3 Days Qty: 9 RF: 0 No Action rosuvastatin [Crestor] 40 MG tablet 40 mg PO DAILY RF: 0 aspirin 81 MG tablet,chewable 81 mg PO DAILY@0800 RF: 0 valsartan 80 MG tablet 80 mg PO QHS Qty: 60 RF: 0 famotidine 20 MG tablet 20 mg PO BID Qty: 60 RF: 0 nicotine 14 MG patch 24 hour 1 ea TD DAILY Qty: 14 RF: 0 Primary Care Provider: Franky Villavicencio Referrals: Franky Villavicencio MD [Primary Care Provider] - Barney Chung DO [STAFF PHYSICIAN] - 5 Days for suture removal Activity Restrictions/Additional Instructions: Please follow-up with orthopedic office for removal of the splint for the nail. Call tomorrow or later today to make an appointment. The finger sutures (black ones) need to be removed in 10 days. Disposition Disposition: Home, Self Care Discharge Date/Time: 01/20/22 12:13
[2022-01-20] MEDS: Lidocaine 1% (20 ml mdv) 20 ML Vial INFILT (11:22)
[2022-01-20] MEDS: Cephalexin 250 MG Capsule 500 MG PO (11:26)
[2022-01-20] MEDS: Acetaminophen 325 MG Tablet 650 MG PO (11:26)
[2022-01-20] MEDS: BACITRACIN 15 GM Tube 1 APPLIC TOPICAL (11:27)
== END 2022-01-20 12:13 | disposition home or self-care (01) ==
PROVIDERS: Emergency Provider Emergency Medicine; PCP Family Medicine; Visit Provider Emergency Medicine
DX: S62.630B Displaced fracture of distal phalanx of right index finger, initial encounter for open fracture (principal); W23.0XXA Caught, crushed, jammed, or pinched between moving objects, initial encounter; Y93.89 Activity, other specified; I10 Essential (primary) hypertension; E78.5 Hyperlipidemia, unspecified; F17.210 Nicotine dependence, cigarettes, uncomplicated; Z79.82 Long term (current) use of aspirin; Z79.899 Other long term (current) drug therapy
CPT/HCPCS: 11760; 73140; 99284

== ENCOUNTER → 2023-04-13 | Outpatient (CLI) | payer OTHER, SELFPAY ==
[2023-04-13 18:44] LABS: ALB/GLOB Ratio 1.1 RATIO (0.9-2.4); AST(SGOT) 25 U/L (15-37); Alanine Aminotransfer ALT/SGPT 36 U/L (16-61); Albumin, Serum 3.7 g/dL (3.2-5.0); Alkaline Phosphatase 115 U/L (45-117); Anion Gap 4 (5-15); BUN 14 mg/dL (7-18); BUN/Creat Ratio 16.7 RATIO (10-20); Calcium,Total 9.3 mg/dL (8.5-10.1); Chloride 107 mmol/L (98-107); Cholesterol 187 mg/dL (200); Creatinine, Serum 0.84 mg/dL (0.70-1.30); EST Glomerular Filtration Rate 98 mL/min (>60); Est Glom Filt Rate - Afr Amer 118 mL/min (>60); Globulin 3.5 g/dL (2.2-4.2); Glucose 80 mg/dL (74-106); High Density Lipoprotein 35 mg/dL; PSA,Total - Annual Screen 0.57 ng/mL (0.00-4.00); Potassium 3.8 mmol/L (3.5-5.1); Protein, Total 7.2 g/dL (6.4-8.2); Sodium Level 137 mmol/L (136-145); Triglycerides 170 mg/dL; Very Low Density Lipoprotein 34 mg/dL (5-40)
== END | disposition home or self-care (01) ==
LOC: MFPLAB 14:56
PROVIDERS: PCP Family Medicine; Visit Provider Family Medicine
DX: E78.5 Hyperlipidemia, unspecified (principal); Z12.5 Encounter for screening for malignant neoplasm of prostate
CPT/HCPCS: 36415; 80053; 80061; 84153; G0103

== ENCOUNTER → 2024-10-24 | Outpatient (CLI) | payer OTHER, SELFPAY ==
[2024-10-24 11:01] LABS: AST(SGOT) 21 U/L (15-37); Alanine Aminotransfer ALT/SGPT 43 U/L (16-61); Albumin, Serum 3.6 g/dL (3.2-5.0); Alkaline Phosphatase 109 U/L (45-117); Anion Gap 4 (5-15); BUN 14 mg/dL (7-18); BUN/Creat Ratio 17.9 RATIO (10-20); Chloride 106 mmol/L (98-107); Cholesterol 170 mg/dL (200); Creatinine, Serum 0.78 mg/dL (0.70-1.30); EST Glomerular Filtration Rate 105 mL/min (>60); Est Glom Filt Rate - Afr Amer 127 mL/min (>60); Globulin 3.5 g/dL (2.2-4.2); Glucose 97 mg/dL (74-106); High Density Lipoprotein 40 mg/dL; PSA,Total - Annual Screen 0.59 ng/mL (0.00-4.00); Potassium 3.8 mmol/L (3.5-5.1); Protein, Total 7.1 g/dL (6.4-8.2); Sodium Level 138 mmol/L (136-145); Triglycerides 101 mg/dL; Very Low Density Lipoprotein 20 mg/dL (5-40)
== END | disposition home or self-care (01) ==
LOC: MTLAB 07:56
PROVIDERS: PCP Family Medicine; Referring Provider Family Medicine; Visit Provider Family Medicine
DX: Z12.5 Encounter for screening for malignant neoplasm of prostate (principal); E78.5 Hyperlipidemia, unspecified
CPT/HCPCS: 36415; 80053; 80061; 84153; G0103

== ENCOUNTER 2025-09-24 18:27 | Emergency (ER) | payer MEDICARE, OTHER, SELFPAY ==
[2025-09-24] VITALS (9 sets, daily range): BP systolic 144–203; BP diastolic 75–79; PULSE 66–93; RESP 12–18; TEMP 36.6; O2SAT 94–98; BMI 28.5
--- NOTE | 2025-09-24 18:49 | EKG12_ITS ---
Test Reason : DYSRHYTHMIA Blood Pressure : */* mmHG Vent. Rate : 88 BPM Atrial Rate : 88 BPM P-R Int : 150 ms QRS Dur : 78 ms QT Int : 356 ms P-R-T Axes : 26 6 77 degrees QTcB Int : 430 ms Normal sinus rhythm Normal ECG Confirmed by Buddy Ruth ([id number]), multimedia editor OSWALDO GUERIN ([id number]) on 09/26/2025 11:34:13 AM Referred By: Confirmed By: Buddy Ruth
--- NOTE | 2025-09-24 19:11 | RAD_ITS ---
PROCEDURE: CHEST PA AND LATERAL 09/24/2025 REASON FOR EXAM: HTN,R/O PULMONARY EDEMA TECHNIQUE: Procedure Code: RADCXR Modality: DX Procedure: CHEST PA AND LATERAL FINDINGS: No focal consolidation. No pleural effusion or pneumothorax. Cardiac silhouette is within normal limits. Calcified aortic arch. No acute fractures. RAD/Chest PA and Lateral IMPRESSION: No focal consolidations. No definite radiographic evidence for pulmonary edema . Reading Location: [id number]
--- NOTE | 2025-09-24 19:15 | CT_ITS ---
PROCEDURE: BRAIN/HEAD WITHOUT CONTRAST 09/24/2025 REASON FOR EXAM: HEADACHE, HTN TECHNIQUE: Procedure Code: CTBR Modality: CT Procedure: BRAIN/HEAD WITHOUT CONTRAST Coronal and Sagittal reconstruction series were provided. One or more dose reduction techniques were used (e.g., Automated exposure control, adjustment of the mA and/or kV according to patient size, use of iterative reconstruction technique. RADIATION DOSE SUMMARY: DLP: 796 mGycm COMPARISON: None FINDINGS: There is no acute infarct, intracranial hemorrhage, or mass effect. There is no hydrocephalus or significant midline shift. There is mild chronic microvascular ischemic changes. No acute, depressed calvarial fractures. No large scalp hematomas. The paranasal sinuses are clear. CT/Brain/Head without Contrast IMPRESSION: No acute intracranial process. Reading Location: [id number]
[2025-09-24 19:19] LABS: Hematocrit 43.6 % (40-54); Hemoglobin 14.7 g/dL (13.0-16.5); Immature Granulocytes Count 0.050 X10^3/uL (0.0-0.0); Mean Corp Hgb Conc 33.7 g/dL (32-36); Mean Corpuscular Volume 86.9 fL (80-94); Mean Platelet Vol. 11.1 fl (6.2-12.0); NRBC Flagged by Analyzer 0 % (0-5); POSITIVE MORPHOLOGY YES; Platelet Count 245 K/mm3 (150-450); RBC Distribution Width CV 12.7 % (11.6-14.6); RBC Distribution Width SD 40.4 fl (35.1-43.9); Red Blood Count 5.02 M/mm3 (4.6-6.2); White Blood Count 9.7 K/mm3 (4.4-11.0)
[2025-09-24 19:27] LABS: Differential Indicated SCAN CRITERIA MET
[2025-09-24 19:32] LABS: Mucous, Urine 0 SEEN /hpf (<or=2+)
--- OUTSIDE RECORDS SUMMARY | 2025-09-24 19:38 | XMS RPT_ITS | CCD ---
Author Organization [facility] Care Team Providers Care String Winding Machine Operator Name Role Phone Ernesto Villavicencoi Referring Unavailable Ernesto Villavicencio Attending Unavailable Ernesto Villavicencio Primary Care Unavailable Medications Current Medications Medication Drug Class(es) Dates Sig (Normalized) Sig (Original) acetaminophen 325 mg / HYDROcodone bitartrate 5 mg oral tablet (2 sources) Opioid Agonist Start: 01-20-2022 take 1 tablet by mouth every eight hours Hydrocodone-Acetam inophen Active 1 TABLET PO Q8H 9 3 January 20, 2022 aspirin 81 mg chewable tablet (2 sources) Platelet Aggregation Inhibitor, Nonsteroidal Anti-inflammatory Drug Start: 04-06-2018 take 81 mg by mouth once daily Aspirin Active 81 MG PO DAILY@0800 April 06, 2018 6:32am cephalexin 500 mg oral capsule (2 sources) Cephalosporin Antibacterial Start: 01-20-2022 take 500 mg by mouth every six hours Cephalexin Active 500 MG PO EVERY 6 HOURS 28 7 January 20, 2022 11:58am famotidine 20 mg oral tablet (2 sources) Histamine-2 Receptor Antagonist Start: 04-06-2018 take 20 mg by mouth twice daily Famotidine Active 20 MG PO TWICE A DAY 60 April 06, 2018 1:13pm 24 hr nicotine 0.583 mg/hr transdermal system (2 sources) Cholinergic Nicotinic Agonist Start: 04-06-2018 apply 7 mg transdermal route once daily Nicotine Active 1 EACH TD DAILY 14 April 06, 2018 1:19pm Transition to 7 mg patch per primary care physician over the next several weeks. rosuvastatin calcium 40 mg oral tablet (2 sources) HMG-CoA Reductase Inhibitor Start: 04-06-2018 take 1 tablet by mouth once daily Rosuvastatin (Crestor) 40 MG tablet Active 40 MG PO DAILY April 06, 2018 4:22am valsartan 80 mg oral tablet (4 sources) Angiotensin 2 Receptor Jaky Start: 04-06-2018 take 80 mg by mouth at bedtime Valsartan Active 80 MG PO AT BEDTIME 60 April 06, 2018 1:13pm Start: 04-06-2018 End: 04-06-2018 take 1 tablet by mouth once daily Valsartan (Diovan) 40 MG tablet Discontinued 40 MG PO DAILY April 06, 2018 4:22am April 06, 2018 1:14pm Problems Problem Classification Problem Date Documented Da te Episodic/Chronic Disorders of lipid metabolism (2 sources) Dyslipidemia; Translations: [Hyperlipidemia, unspecified] 04-06-2018 Chronic Essential hypertension (2 sources) Hypertensive disorder; Translations: [Essential (primary) hypertension] 04-06-2018 Chronic Fracture of upper limb (2 sources) Open fracture of distal phalanx of finger; Translations: [Displaced fracture of distal phalanx of unspecified finger, initial encounter for open fracture] 01-28-2022 Episodic Nonspecific chest pain (2 sources) Atypical chest pain; Translations: [Other chest pain] 04-06-2018 Episodic Open wounds of extremities (4 sources) Laceration of right index finger; Translations: [Laceration without foreign body of right index finger without damage to nail, initial encounter] 01-28-2022 Episodic Other screening for suspected conditions (not mental disorders or infectious disease) (1 source) Encounter for screening for malignant neoplasm of prostate; Translations: [Encounter for screening for malignant neoplasm of prostate] Onset: 11-14-2024 Episodic Unclassified (2 sources) 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, [address] Albumin/Globulin [Mass ratio] 1.0 {ratio} Normal 0.9-2.4 [facility] Comment on above: Order Comment: Order Date: 07/20/24 Order Info: 86-1 - CMP Order Info: [id number] - LIPID Order Info: [id number] - PSA Performed By: #### L 500.4050, L500.4100, L501.9910 #### [facility] [address] [place], [address] ALK P 109 U/L Normal 45-117 [facility] Comment on above: Order Comment: Order Date: 07/20/24 Order Info: 86-1 - CMP Order Info: [id number] - LIPID Order Info: [id number] - PSA Performed By: #### L 500.4050, L500.4100, [id number] #### [facility] [address] [place], [address] ALT [Catalytic activity/Vol] 43 U/L Normal 16-61 [facility] Comment on above: Order Comment: Order Date: 07/20/24 Order Info: 86-1 - CMP Order Info: [id number] - LIPID Order Info: [id number] - PSA Performed By: #### L [id number], L500.4100, [id number] #### [facility] [address] [place], [address] AST [Catalytic activity/Vol] 21 U/L Normal 15-37 [facility] Comment on above: Order Comment: Order Date: 07/20/24 Order Info: [id number]- - CMP Order Info: [id number] - LIPID Order Info: [id number] - PSA Performed By: #### L [id number], L500.4100, [id number] #### [facility] [address] [place], [address] Bilirubin [Mass/Vol] 0.60 mg/dL Normal 0.20-1.00 [facility] Comment on above: Order Comment: Order Date: 07/20/24 Order Info: 86-1 - CMP Order Info: [id number] - LIPID Order Info: 7-1 - PSA Result Comment: For patients on eltrombopag therapy, use of Dimension Patriot TBIL is not recommended. Performed By: #### L [id number], L500.4100, L501.9910 #### [facility] [address] [place], [address] BUN/CRE 17.9 RATIO Normal 10-20 [facility] Comment on above: Order Comment: Order Date: 07/20/24 Order Info: 07-1 - CMP Order Info: [id number] - LIPID Order Info: [id number] - PSA Performed By: #### L 500.4050, L500.4100, [id number] #### [facility] [address] [place], [address] CA,Total 9.0 mg/dL Normal 8.5-10.1 [facility] Comment on above: Order Comment: Order Date: 07/20/24 Order Info: [id number]- - CMP Order Info: [id number] - LIPID Order Info: [id number] - PSA Performed By: #### L 500.4050, L500.4100, [id number] #### [facility] [address] [place], [address] Chloride [Moles/Vol] 106 mmol/L Normal 98-107 [facility] Comment on above: Order Comment: Order Date: 07/20/24 Order Info: [id number]- - CMP Order Info: [id number] - LIPID Order Info: [id number] - PSA Performed By: #### L 500.4050, L500.4100, [id number] #### [facility] [address] [place], [address] CO2 [Moles/Vol] 28.0 mmol/L Normal 21.0-32.0 [facility] Comment on above: Order Comment: Order Date: 07/20/24 Order Info: [id number] - CMP Order Info: [id number] - LIPID Order Info: [id number]- - PSA Performed By: #### L 500.4050, L500.4100, [id number] #### [facility] [address] [place], [address] Creatinine [Mass/Vol] 0.78 mg/dL Normal 0.70-1.30 [facility] Comment on above: Order Comment: Order Date: 07/20/24 Order Info: [id number] - CMP Order Info: [id number] - LIPID Order Info: [id number] - PSA Result Comment: The validity of the calculated GFR GFRAA in patients over 70 years has not been determined. Clinical correlation is essential. Performed By: #### L 500.4050, L500.4100, L501.9910 #### [facility] [address] [place], [address] EST GFR - AA 127 mL/min Normal >60 [facility] Comment on above: Order Comment: Order Date: 07/20/24 Order Info: [id number] - CMP Order Info: [id number] - LIPID Order Info: [id number] - PSA Result Comment: Afri can Malaysian GFR Calc Performed By: #### L 500.4050, L500.4100, L501.9910 #### [facility] [address] [place], [address] GAP 4 Low 5-15 [facility] Comment on above: Order Comment: Order Date: 07/20/24 Order Info: [id number]- - CMP Order Info: [id number] - LIPID Order Info: [id number] - PSA Performed By: #### L 500.4050, L500.4100, [id number] #### [facility] [address] [place], [address] GFR/1.73 sq M.predicted among non-blacks MDRD (S/P/Bld) [Vol rate/Area] 105 mL/min/{1.73_m2} Normal >60 [facility] Comment on above: Order Comment: Order Date: 07/20/24 Order Info: 07- - CMP Order Info: - LIPID Order Info: [id number] - PSA Result Comment: Non- GFR Calc Performed By: #### L 500.4050, L500.4100, [id number] #### [facility] [address] [place], [address] Globulin (S) [Mass/Vol] 3.5 g/dL Normal 2.2-4.2 [facility] Comment on above: Order Comment: Order Date: 07/20/24 Order Info: [id number] - CMP Order Info: [id number] - LIPID Order Info: [id number] - PSA Performed By: #### L 500.4050, L500.4100, [id number] #### [facility] [address] [place], [address] Glucose [Mass/Vol] 97 mg/dL Normal 74-106 [facility] Comment on above: Order Comment: Order Date: 07/20/24 Order Info: [id number] - CMP Order Info: [id number] - LIPID Order Info: [id number] - PSA Performed By: #### L 500.4050, L500.4100, [id number] #### [facility] [address] [place], [address] Potassium [Moles/Vol] 3.8 mmol/L Normal 3.5-5.1 [facility] Comment on above: Order Comment: Order Date: 07/20/24 Order Info: [id number] - CMP Order Info: [id number] - LIPID Order Info: [id number] - PSA Performed By: #### L 500.4050, L500.4100, [id number] #### [facility] [address] [place], [address] Sodium [Moles/Vol] 138 mmol/L Normal 136-145 [facility] Comment on above: Order Comment: Order Date: 07/20/24 Order Info: 07- - CMP Order Info: [id number] - LIPID Order Info: [id number]- - PSA Performed By: #### L 500.4050, L500.4100, [id number] #### [facility] [address] [place], [address] T PROT 7.1 g/dL Normal 6.4-8.2 [facility] Comment on above: Order Comment: Order Date: 07/20/24 Order Info: [id number]- - CMP Order Info: [id number] - LIPID Order Info: [id number] - PSA Performed By: #### L 500.4050, L500.4100, [id number] #### [facility] [address] [place], [address] Urea nitrogen [Mass/Vol] 14 mg/dL Normal 7-18 [facility] Comment on above: Order Comment: Order Date: 07/20/24 Order Info: [id number] - CMP Order Info: [id number] - LIPID Order Info: [id number] - PSA Performed By: #### L 500.4050, L500.4100, [id number] #### [facility] [address] [place], [address] Lipid Profileon 10-24-2024 Cholesterol [Mass/Vol] 170 mg/dL Normal 200 [facility] Comment on above: Order Comment: Order Date: 07/20/24 Order Info: [id number]- - CMP Order Info: [id number] - LIPID Order Info: [id number] - PSA Result Comment: <200 mg/dL Desirable 200-240 mg/dL Borderline >240 mg/dL High Risk Performed By: #### L 500.4050, L500.4100, [id number] #### [facility] [address] [place], [address] Cholesterol in HDL [Mass/Vol] 40 mg/dL Normal [facility] Comment on above: Order Comment: Order Date: 07/20/24 Order Info: [id number]- - CMP Order Info: [id number] - LIPID Order Info: [id number] - PSA Result Comment: The drugs N-Acetylcysteine and Metamizole may falsely depress this assay. Reference Range HDL <40 mg/dL Low HDL Cholesterol HDL >or= 60 mg/dL High HDL Cholesterol Performed By: #### L 500.4050, L500.4100, L501.9910 #### [facility] [address] [place], [address] Cholesterol in LDL [Mass/Vol] 110 mg/dL Normal 0-130 [facility] Comment on above: Order Comment: Order Date: 07/20/24 Order Info: [id number] - CMP Order Info: [id number] - LIPID Order Info: [id number] - PSA Performed By: #### L 500.4050, L500.4100, [id number] #### [facility] [address] [place], [address] Cholesterol in VLDL [Mass/Vol] 20 mg/dL Normal 5-40 [facility] Comment on above: Order Comment: Order Date: 07/20/24 Order Info: [id number] - CMP Order Info: [id number] - LIPID Order Info: [id number] - PSA Performed By: #### L 500.4050, L500.4100, [id number] #### [facility] [address] [place], [address] Triglyceride [Mass/Vol] 101 mg/dL Normal [facility] Comment on above: Order Comment: Order Date: 07/20/24 Order Info: [id number] - CMP Order Info: [id number] - LIPID Order Info: [id number]- - PSA Result Comment: The drugs N-Acetylcysteine and Metamizole may falsely depress this assay. Serum Triglycerides Reference Interval Normal <150 mg/dL Borderline high 150 - 199 mg/dL High 200 - 499 mg/dL Very High > or = 500 mg/dL Performed By: #### L 500.4050, L500.4100, L501.9910 #### [facility] [address] [place], [address] PSA,Total - Annual Screenon 10-24-2024 PSA,TOT SCREEN 0.59 ng/mL Normal 0.00-4.00 [facility] Comment on above: Order Comment: Order Date: 07/20/24 Order Info: [id number] - CMP Order Info: [id number] - LIPID Order Info: [id number] - PSA Result Comment: This test was performed using the TPSA assay method for the [employer] chemistry system. Values obtained with different assay methods cannot be used interchangably. When changing PSA assays in the course of monitoring a patient, additional sequential testing should be carried out to confirm baseline values. Performed By: #### L 500.4050, L500.4100, L501.9910 #### [facility] [address] [place], [address] Basophil percentageOrdered B y: Franky Villavicencio on 04-13-2023 Bilirubin [Mass/Vol] 0.30 mg/dL 0.20-1.00 [facility] Comment on above: For patients on eltr ombopag therapy, use of Dimension Patriot TBIL is not recommended. Chloride [Moles/Vol] 107 mmol/L 98-107 [facility] Cholesterol [Mass/Vol] 187 mg/dL <200 [facility] Comment on above: <200 mg/dL Desirable 200-240 mg/dL Borderline >240 mg/dL High Risk Glucose [Mass/Vol] 80 mg/dL 74-106 [facility] Potassium [Moles/Vol] 3.8 mmol/L 3.5-5.1 [facility] Protein [Mass/Vol] 7.2 g/dL 6.4-8.2 [facility] Sodium [Moles/Vol] 137 mmol/L 136-145 [facility] Triglyceride [Mass/Vol] 170 mg/dL <[address] [facility] Comment on above: The drugs N-Acetylcy steine and Metamizole may falsely depress this assay.Serum Triglycerides Reference Interval Normal <150 mg/dL Borderline high 150 - 199 mg/dL High 200 - 499 mg/dL Very High > or = 500 mg/dL Laboratory - Chemistry and C hemistry - challengeOrdered By: Franky Villavicencio on 04-13-2023 ALP [Catalytic activity/Vol] 115 U/L 45-117 [facility] ALT [Catalytic activity/Vol] 36 U/L 16-61 [facility] CO2 [Moles/Vol] 26.0 mmol/L 21.0-32.0 [facility] Globulin (S) [Mass/Vol] 3.5 g/dL 2.2-4.[address] [facility] Urea nitrogen/Creatinine [Mass ratio] 16.7 mg/mg 10-20 [facility] No Panel InformationOrdered By: Franky Villavicencio on 04-13-2023 Estimated GFR (MDRD) Amer 118 mL/min >60 [facility] Comment on above: GFR Calc Estimated GFR (MDRD) Non-Af Amer 98 mL/min >60 [facility] Comment on above: Non- GFR Calc Prostate Specific Antigen Screen 0.57 ng/mL 0.00-4.00 [facility] Comment on above: This test was perfor med using the TPSA assay method for [employer] chemistry system. Values obtained with differentassay methods cannot be used interchangably.When changing PSA assays in the course of monitoring apatient, additional sequential testing should be carriedout to confirm baseline values. Serum or plasma albumin bridget urement (mass/volume)Ordered By: Franky Villavicencio on 04-13-2023 Albumin [Mass/Vol] 3.7 g/dL 3.2-5.0 [facility] Serum or plasma albumin/glob ulin mass ratioOrdered By: Franky Villavicencio on 04-13-2023 Albumin/Globulin [Mass ratio] 1.1 {ratio} 0.9-2.4 [facility] Serum or plasma calcium bridget urement (mass/volume)Ordered By: Franky Villavicencio on 04-13-2023 Calcium [Mass/Vol] 9.3 mg/dL 8.5-10.1 [facility] Serum or plasma cholesterol in HDL measurement (mass/volume)Ordered By: Franky Villavicencio on 04-13-2023 Cholesterol in HDL [Mass/Vol] 35 mg/dL >40 [facility] Comment on above: The drugs N-Acetylcy steine and Metamizole may falsely depress this assay. Reference Range HDL <40 mg/dL Low HDL Cholesterol HDL >or= 60 mg/dL High HDL Cholesterol Serum or plasma cholesterol in VLDL measurement (mass/volume)Ordered By: Franky Villavicencio on 04-13-2023 Cholesterol in VLDL [Mass/Vol] 34 mg/dL 5-40 [facility] Serum or plasma creatinine m easurement (mass/volume)Ordered By: Franky Villavicencio on 04-13-2023 Creatinine [Mass/Vol] 0.84 mg/dL 0.70-1.30 [facility] Comment on above: The validity of the calculated GFR & GFRAA in patients over 70 years has not been determined. Clinical correlation is essential. Serum or plasma low density lipoprotein (LDL) cholesterol measurement (mass/volume)Ordered By: Franky Villavicencio on 04-13-2023 Cholesterol in LDL [Mass/Vol] 118 mg/dL 0-130 [facility] Serum or plasma urea nitroge n measurement (mass/volume)Ordered By: Franky Villavicencio on 04-13-2023 Urea nitrogen [Mass/Vol] 14 mg/dL 7-18 [facility] Thin prep Papanicolaou smear with manual screeningOrdered By: Franky Villavicencio on 04-13-2023 Thin prep Papanicolaou smear with manual screening 25 U/L 15-37 [facility] Thin prep Papanicolaou smear with manual screening 4 5-15 [facility] Vital Signs Date Time Vital Sign Value Performing Clinician Danielle lovell 01-20-2022 10:03-040 Body height 172.72 cm [facility] Work Phone: 01-20-2022 10:03-0400 Body mass index (BMI) [Ratio] 28.1 kg/m2 [facility] Work Phone: 01-20-2022 10:03-0400 Body temperature 97.9 [degF] [facility] Work Phone: 01-20-2022 10:03-0400 Body weight 83.91 kg [facility] Work Phone: 01-20-2022 10:03-0400 Diastolic blood pressure 96 mm[Hg] [facility] Work Phone: 01-20-2022 10:03-0400 Heart rate 83 /min [facility] Work Phone: 01-20-2022 10:03-0400 Respiratory rate 16 /min [facility] Work Phone: 01-20-2022 10:03-0400 SaO2% (BldA) [Mass fraction] 97 % [facility] Work Phone: 01-20-2022 10:03-0400 Systolic blood pressure 206 mm[Hg] [facility] Work Phone: Encounters Encounter Date Encounter Type Care Provider Facility Start: 10-24-2024 End: 10-24-2024 ambulatory [facility] Facility:[facility] Start: 04-13-2023 End: 04-13-2023 ambulatory [facility] Work Phone: Start: 04-13-2023 End: 04-13-2023 Patient encounter procedure [facility] Start: 01-20-2022 End: 01-20-2022 Emergency department patient visit [facility] Procedures Date Procedure Procedure Detail Performing Clinician Start: 01-20-2022 Diagnostic radiograp hy of finger Plan of Treatment Date Care Activity Detail Author Patient Education ED Open Hand F racture (Adult) ED Laceration, Hand: All Closures ED Detached Fingernail or Toenail [facility] Work Phone: Patient referral [facility] Work Phone: Payers Date Payer Category Payer Self-pay [id number] 2016 Private Health Insurance [id number] 2010 Unknown [id number] Unknown [id number] Social History Date Type Detail Facility Start: 01-20-2022 Tobacco smoking stat us [facility]IS Unknown if ever smoked [facility] Start: 1955 Sex Assigned At Male [facility] Evaluation note Note Date & Type Note Facility Evaluation note No assessment information availa ble [facility] Work Phone: Hospital Discharge instructions Note Date & Type Note Facility Hospital Discharge instructions Additional Instructions Please follow-up with orthopedic office for removal of the splint for the nail. Call tomorrow or later today to make an appointment. The finger sutures (black ones) need to be removed in 10 days. [facility] Work Phone: Chief Complaint and Reason for Visit Chief Complaint LACERATION Family History No Family History Records Found Relationship Condition Age at Onset Recorded Date/T karen Unknown Family History?No pertinent history Unkno wn April 06, 2018 6:00am Family History?No pertinent history Unkno April 06, 2018 6:00am Advance Directives No Advanced Directives Records Found Advance Directive Response Recorded Date/ Time Living Will No January 20, 2022 10:17am Power of Second Helper No January 20 10:17am Summary Purpose Additional Source Comments Goals (unrecognized section and content) Goals may be documented in a n alternate sectionGoals may be documented in an alternate section Care Teams (unrecognized sec tion and content) Team Status: Active Member Role Status Dates Dr. Franky Villavicencio MD Family Provider Active Dr. Franky Villavicencio MD Primary Care Provider Activ e Team Status: Inactive Member Role Status Dates Dr. Franky Villavicencio MD Primary Care Provider, Atte nding Provider Active (unrecognized sect ion and content) No Status Records Found INFORMATION SOURCE (unrecogn ized section and content) DATE CREATED AUTHOR 11/16/2024 [facility] FOR RECORDS PERTAINING TO PATIENTS WHO ARE OR HAVE BEEN ENROLLED IN A CHEMICAL DEPENDENCY/SUBSTANCEABUSE PROGRAM, SOME INFORMATION MAY BE OMITTED. This clinical summary was aggregated from multiple sources. Caution should be exercised in using it in the provision of clinical care. This summary normalizes information from multiple sources, and as a consequence, information in this document may materially change the coding, format and clinical context of patient data. In addition, data may be omitted in some cases. CLINICAL DECISIONS SHOULD BE BASED ON THE PRIMARY CLINICAL RECORDS. [facility] [employer] [facility]. provides no warranty or guarantee of the accuracy or completeness of information in this document.
--- NOTE | 2025-09-24 19:41 | EDS_ITS ---
HPI History of Present Illness Chief Complaint: Hypertension Narrative Narrative: Patient is a 69-year-old male presenting to the emergency department for hypertension noted at home. Patient has a past medical history of hypertension, hyperlipidemia and is an active smoker. Patient states that he has been on amlodipine and losartan for hypertension and this has been managing it well. States he was at his 6-month follow-up with his primary care doctor last Wednesday when they noted that he was slightly hypertensive. States he has been compliant with his medications. He reports that they called him today to tell him to keep a log of his blood pressure and when he checked his blood pressure today it was in the systolics of 200s. He notes a mild headache that he reports I do not consider it a headache. Denies any visual changes, numbness or weakness in his arms or legs, chest pain, shortness of breath or abdominal pain. PFSH [facility] Medical History GERD (gastroesophageal reflux disease) HTN (hypertension) Medical History no medical history Home Medications ?Medication ?Instructions ?Recorded ?Last Taken ?Type aspirin 81 mg chewable tablet 81 mg PO DAILY@0800 06/09/24/25 History rosuvastatin 40 mg tablet (Crestor) 40 mg PO DAILY 09/24/25 History amlodipine 10 mg tablet 10 mg PO DAILY 09/24/2506/11 History ibuprofen 200 mg tablet (Advil) 400 mg PO Q4H PRN feve r or pain 09/24/25 09/23/25 History losartan 100 1 tab PO DAILY 09/24/2506/11 History mg-hydrochlorothiazide 12.5 mg tablet Allergy/AdvReac Type Severity Reaction Status Date / Time No Known Allergies Allergy Verified 09/24/25 18:31 Surgical History no surgical history Social History Smoking Status: Heavy Smoker (>10/day) ROS ROS ED ROS Narrative See HPI EXAM Physical Exam Narrative Exam Narrative: Vital signs: Reviewed General: Alert and oriented x 3. No acute distress. Well-appearing, nontoxic HEENT: Head is normocephalic and atraumatic, sinuses nontender, pupils equal round and reactive. Nares are patent. Oropharynx and throat exams normal. Neck: Supple without lymphadenopathy nontender Cardiovascular: Regular rate and rhythm, no murmurs. No rubs or gallops. Normal S1 and S2. Pulses are equal and symmetric throughout. Respiratory: Clear to auscultation bilaterally. No wheezes, rales, rhonchi Abdominal: Soft and nontender. Normal bowel sounds. No guarding or rebound. Nonsurgical abdomen Extremities: No tenderness. No bruising. Normal range of motion. Normal sensation. Skin: No rash or redness. Neurological: Cranial nerves II through XII are grossly intact. Normal strength and sensation. Normal cerebellar function The rest of the physical exam is unremarkable Const Vital Signs: 09/24/25 18:29 09/24/25 18:47 09/24/25 19:22 Temperature 98 F Temperature Source Temporal Pulse Rate 93 85 Respiratory Rate 18 13 Respiratory Effort Normal Respiratory Pattern Normal Blood Pressure 203/75 H Blood Pressure Mean 117 Pulse Ox 98 96 09/24/25 19:26 09/24/25 19:30 09/24/25 19:45 Temperature Temperature Source Pulse Rate 83 74 Respiratory Rate 18 16 Respiratory Effort Respiratory Pattern Blood Pressure 184/77 H 166/79 H 154/77 H Blood Pressure Mean 104 100 99 Pulse Ox 98 95 09/24/25 20:00 09/24/25 20:15 09/24/25 20:30 Temperature Temperature Source Pulse Rate 71 67 66 Respiratory Rate 15 12 Respiratory Effort Respiratory Pattern Blood Pressure 144/77 H 153/79 H Blood Pressure Mean 92 100 Pulse Ox 94 95 97 09/24/25 20:35 Temperature 98 F Temperature Source Pulse Rate 66 Respiratory Rate 12 Respiratory Effort Respiratory Pattern Blood Pressure 153/79 H Blood Pressure Mean 103 Pulse Ox 97 MDM MDM MDM Narrative Medical decision making narrative: Patient is a 69-year-old male presenting to the emergency department for hypertension. Patient was seen and examined. Initial blood pressure of 203/75, all other vital signs are stable. This was taken directly on his arrival after he had walked in the emergency department, after resting a repeat blood pressure was taken and systolics were in the 180s. Differential includes but is not limited to: Hypertensive emergency, asymptomatic hypertension. Tension headache. Less concern for brain bleed or stroke given normal neurologic exam. EKG shows normal sinus rhythm at a rate of 88 with no ischemic changes. No dysrhythmia. CBC with no leukocytosis and a normal hemoglobin. CMP with no significant abnormalities. Troponin within normal limits. Urinalysis with no evidence of urinary tract infection. CT of the brain shows no acute intracranial process. Chest x-ray reviewed myself, no opacities, pneumothorax, widened mediastinum or pulmonary edema. Radiology read in agreement. Without any intervention, blood pressure of 153/79 on reevaluation. Patient states his headaches improved after Tylenol. Patient and family at bedside updated on the negative workup. I did recommend that he follow-up with his primary care doctor soon as possible to discuss need for any other antihypertensives versus keeping blood pressure log at home which I did recommend. Patient discharged from the Emergency Department. I do not feel that the patient's evaluation reveals any acute reason for admission at this time. I instructed them to either follow-up with their primary care physician or promptly return to the Emergency Department for reevaluation should symptoms worsen or new symptoms develop. I explained what symptoms would indicate the need to return to the emergency department. Shared decision making was used. The patient voiced understanding of the treatment plan and is agreeable with it. Clinical impression Hypertension Headache History & Record Review Discussion w/independent historian: Patient and Family Lab Data Attestation: I reviewed the patient's lab results. Labs: Laboratory Results - last 24 hr 09/24/25 09/24/25 19:06 19:25 WBC 9.7 RBC 5.02 Hgb 14.7 Hct 43.6 MCV 86.9 MCH 29.3 MCHC 33.7 RDW Std Deviation 40.4 RDW Coeff of Tracy 12.7 Plt Count 245 MPV 11.1 Immature Gran % (Auto) 0.500 Neut % (Auto) 61.7 Lymph % (Auto) 28.0 Towns % (Auto) 5.4 Eos % (Auto) 3.7 Baso % (Auto) 0.7 Absolute Neuts (auto) 6.0 Absolute Lymphs (auto) 2.71 Nucleated RBC % 0 Differential Comment SCANNED Sodium 141 Potassium 3.8 Chloride 104 Carbon Dioxide 24.2 Anion Gap 13 BUN 14 Creatinine 0.76 Estim Creat Clear Calc 96.91 Est GFR (MDRD) Non-Af 98 BUN/Creatinine Ratio 18.9 Glucose 107 H Calcium 9.8 Total Bilirubin 0.33 AST 31 ALT 37 Alkaline Phosphatase 127 Troponin T High Sens < 6 Total Protein 7.2 Albumin 4.4 Globulin 2.8 Albumin/Globulin Ratio 1.6 Urine Color Yellow Urine Clarity Sl Cldy Urine pH 7.0 Ur Specific [place] 1.010 Urine Protein 15 H Urine Glucose (UA) Normal Urine Ketones Negative Urine Occult Blood Negative Urine Nitrite Negative Urine Bilirubin Negative Urine Urobilinogen Normal Ur Leukocyte Esterase Negative Urine RBC 0-5 SEEN Urine WBC 0-5 SEEN Ur Squamous Epith Cells 0-5 SEEN Urine Bacteria 1+ Urine Mucus 0 SEEN Radiography Chest X-Ray - ED: 2 View, Read by ED Physician, Normal, No Acute Disease and No Infiltrates Diagnostic Testing: Clinical Impression(s) from Imaging Studies Chest X-Ray 09/24/25 19:11 IMPRESSION: No focal consolidations. No definite radiographic evidence for pulmonary edema. Reading Location: [id number] Brain CT 09/24/25 19:15 IMPRESSION: No acute intracranial process. Reading Location: [facility] Discharge Plan Triage Chief Complaint: Hypertension ED Provider: Maylin Zhu Dx/Rx/DC Orders Clinical Impression: Hypertension, Headache Instructions: Understanding Headache Pain, Hypertension Dc, ED Hypertension, Established Prescriptions: No Action rosuvastatin [Crestor] 40 MG tablet 40 mg PO DAILY aspirin 81 MG tablet,chewable 81 mg PO DAILY@0800 amlodipine 10 mg tablet 10 mg PO DAILY losartan-hydrochlorothiazide 100-12.5 mg tablet 1 tab PO DAILY ibuprofen [Advil] 200 mg tablet 400 mg PO Q4H PRN (Reason: fever or pain) Primary Care Provider: Ernesto Villavicencio Referrals: Ernesto Villavicencio MD [Primary Care Provider, Family Practice] - As soon as possible Activity Restrictions/Additional Instructions: Keep a blood pressure log at home. Call your primary care doctor tomorrow morning. Your evaluation in the Emergency Department did not reveal any acute reason for admission. However, I want to emphasize that you may be early in the course of a disease process or illness even if it is not present. For this reason you should follow-up within 24 hours for reevaluation with either your primary care physician or if necessary back here in the Emergency Department. You should return to the Emergency Department immediately if your symptoms worsen or new symptoms develop. Print Language: Persian Disposition Disposition: Home, Self Care Discharge Date/Time: 09/24/25 20:47
[2025-09-24 19:43] LABS: AST(SGOT) 31 U/L (<=37); Alanine Aminotransfer ALT/SGPT 37 U/L (<=46); Albumin, Serum 4.4 g/dL (3.4-4.8); Alkaline Phosphatase 127 U/L (40-129); Anion Gap 13 (5-15); BUN 14 mg/dL (4-19); BUN/Creat Ratio 18.9 RATIO (10-20); Calcium,Total 9.8 mg/dL (7.6-11.0); Carbon Dioxide 24.2 mmol/L (21.0-32.0); Chloride 104 mmol/L (98-108); Estimated Creatinine Clearance 96.91 ml/min (50-250); Globulin 2.8 g/dL (2.2-4.2); Glucose 107 mg/dL (70-99); Potassium 3.8 mmol/L (3.3-5.1); Troponin T High Sensitivity < 6 ng/L (<=22)
[2025-09-24 19:51] LABS: Glucose, Dipstick Normal (Normal); Ketone-Dipstick Negative (Negative); Leukocyte Esterase-Dipstick Negative /ul (Negative); Nitrite-Dipstick Negative (Negative); Occult Blood-Urine Negative /ul (Negative); Protein-Dipstick 15 mg/dl (Negative); Specific Gravity, Urine 1.010 (1.002-1.030); Urine Bilirubin Dipstick Negative (Negative)
[2025-09-24 19:54] LABS: Color, Urine Yellow (Yellow)
[2025-09-24 20:28] LABS: Red Blood Cells-Urine 0-5 SEEN /hpf (0-5); Squamous Epithelial Cells - UA 0-5 SEEN /hpf (0-5)
[2025-09-24 22:13] LABS: Differential Comment SCANNED
== END 2025-09-24 20:47 | disposition home or self-care (01) ==
PROVIDERS: Emergency Provider Student in an Organized Health Care Education/Training Program; PCP Family Medicine; Visit Provider Student in an Organized Health Care Education/Training Program
DX: I10 Essential (primary) hypertension (principal); R51.9 Headache, unspecified; E78.5 Hyperlipidemia, unspecified; F17.200 Nicotine dependence, unspecified, uncomplicated; Z79.82 Long term (current) use of aspirin; Z79.899 Other long term (current) drug therapy
CPT/HCPCS: 70450; 71046; 80053; 81001; 84484; 85025; 93005; 99284; A4216

== ENCOUNTER 2025-10-01 17:41 | Emergency (ER) | payer MEDICARE, OTHER, SELFPAY ==
[2025-10-01 17:41] VITALS: BP 203/73; PULSE 87; RESP 16; TEMP 36.6; O2SAT 99; BMI 28.2
[2025-10-01 17:45] VITALS: BP 186/71
--- NOTE | 2025-10-01 18:55 | EX.ED.DYSGE1 ---
HPI History of Present Illness Chief Complaint: Hypertension [facility] Medical History GERD (gastroesophageal reflux disease) HTN (hypertension) Medical History no medical history Home Medications ?Medication ?Instructions ?Recorded ?Last Taken ?Type aspirin 81 mg chewable tablet 81 mg PO DAILY@0800 04/06/18 09/30/25 History rosuvastatin 40 mg tablet (Crestor) 40 mg PO DAILY 04/06/18 09/30/25 History amlodipine 10 mg tablet 10 mg PO DAILY 09/24/25 09/30/25 History ibuprofen 200 mg tablet (Advil) 400 mg PO Q4H PRN fever or pain 09/24/25 09/23/25 History losartan 100 1 tab PO DAILY 10/01/25 09/30/25 History mg-hydrochlorothiazide 25 mg tablet Allergy/AdvReac Type Severity Reaction Status Date / Time No Known Allergies Allergy Verified 10/01/25 17:44 Surgical History no surgical history Social History Smoking Status: Heavy Smoker (>10/day) EXAM Physical Exam Const Vital Signs: 10/01/25 17:41 10/01/25 17:45 10/01/25 19:00 Temperature 98 F Temperature Source Oral Pulse Rate 87 Respiratory Rate 16 Respiratory Pattern Blood Pressure 203/73 H 186/71 H 148/102 H Blood Pressure Mean 116 109 117 Pulse Ox 99 Oxygen Delivery Method Room Air 10/01/25 19:05 10/01/25 19:06 10/01/25 19:18 Temperature Temperature Source Pulse Rate Respiratory Rate Respiratory Pattern Normal Normal Blood Pressure 151/75 H Blood Pressure Mean 100 Pulse Ox Oxygen Delivery Method 10/01/25 21:00 Temperature 98.6 F Temperature Source Pulse Rate 62 Respiratory Rate 16 Respiratory Pattern Blood Pressure 122/75 H Blood Pressure Mean 90 Pulse Ox 95 Oxygen Delivery Method MDM MDM MDM Narrative Medical decision making narrative: HISTORY OF PRESENT ILLNESS: Chief complaint: Hypertension 69-year-old male history of hyperlipidemia, hypertension on amlodipine, losartan hydrochlorothiazide presents with elevated blood pressure. The patient states he noticed his blood pressure is elevated this evening as high as 200s systolic. Notes a mild headache. Notes fluttering in his chest but no chest pain. Denies shortness of breath or leg swelling. Denies focal weakness numbness or loss sensation. He states has been compliant with his home blood pressure medicine. He states he takes it at night. His last dose was taken last night at approximate midnight. Notes he still smoking. REVIEW OF SYSTEMS: Pertinent positives: Headache, palpitations Pertinent negatives: As per HPI PHYSICAL EXAM: Nursing triage notes reviewed, Vital signs reviewed Constitutional: please see [facility] HENT: MMM Eyes: Pupils equal round and reactive to light, Extraocular muscles intact Neck: No stridor, no JVD, full neck ROM Lungs: Clear to auscultation, No wheezing or rales. No increased work of breathing, no conversational dyspnea, no accessory muscle use, no nasal flaring. No respiratory distress noted Heart: Regular rate and rhythm, No murmurs, No rubs and No gallops, 2+ distal pulses (radial, femoral, posterior tibial) in all extremities Abdomen: Soft, there is no tenderness, rigidity, rebound or guarding, no obvious peritoneal signs, no palpable pulsatile abdominal masses, no auscultated abdominal bruit : No CVAT Extremities: No edema Neuro: No new focal neurological deficits, cranial nerves II through XII intact, 5/5 strength in all present extremities. Intact sensation to light touch in all present extremities, 2+ reflexes bilateral patella tendons. Skin: No rash or lesions noted MEDICAL DECISION MAKING: Chief Complaint: please see [facility] External records reviewed: Reviewed CT scan of the brain from 09/24/2025 Factors affecting care: Hypertension Social determinants of health current smoker History obtained from others: Family Consults: none [facility] Narrative: The patient was initially hypertensive with a triage blood pressure of 203/73. Patient was otherwise afebrile and nontoxic-appearing. Exam without focal cardiopulmonary maladies. No stigmata of CHF or ICH. No focal deficits noted. I considered the following differential diagnosis: Endorgan damage from elevated blood pressure I obtained a broad lab and imaging workup to further determine if the patient was suffering from a life-threatening etiology. Initially treat the patient was home blood pressure medicine. 10 mg of oral Norvasc, 100 mg of oral losartan, 12 5 mg oral hydrochlorothiazide. ALL IMAGES (IF OBTAINED) HAVE BEEN PERSONALLY REVIEWED AND INTERPRETED BY MYSELF. EKG with normal sinus rhythm rate of 70, normal axis, normal intervals, no STEMI CT scan of the brain showed no evidence of ICH I have personally reviewed the patient's chest x-ray. Chest x-ray is unremarkable for pulmonary edema, pneumothorax, pneumonia or focal cardiopulmonary abnormality. High-sensitivity troponin is negative, no evidence of myocardial ischemia CBC without leukocytosis, severe anemia, no thrombocytopenia. BMP without evidence of significant electrolyte abnormalities, no anion gap, no acute kidney injury. On reevaluation the patient's blood pressure improved after home blood pressure medicine to 122/75. Repeat neurologic exam remained intact. Repeat cardiopulmonary dam remained benign. Patient is not suffering from a life-limiting etiology secondary to elevated blood pressure. Encouraged him to continue to take home blood pressure medicines. Encouraged him to take 1 blood pressure medicine in the morning and 1 in the evening for more even blood pressure control throughout the day. Encouraged increased salt intake. Encouraged regular exercise. Encouraged prompt PCP follow-up. Patient alerted me as a PCP appointment for tomorrow. Encouraged him to continue this appointment. The patient and/or family, caregivers express understanding. The patient and/or family, caregivers agrees with the plan. Shared decision making: I will have a discussion with the patient and or visitors regarding risk/benefits of further testing or admission. They will be made aware of of the risk/benefits inherent in this decision they will be given the opportunity to voice understanding. Total critical care time today provided was at least 0 minutes. This excludes separately billable procedures. Critical care time (if documented) is secondary to the patient having high probability of clinically significant/life threatening deterioration in the patient's condition which required my urgent intervention. Impression: 1. Poorly Controlled hypertension 2. History of hypertension 3. History of tobacco abuse Dispo: Discharge home This note was generated with [employer] dictation software. It may contain incorrect words, spelling, and punctuation that were not noted in review of the chart prior to signing. Lab Data Labs: Laboratory Results - last 24 hr 10/01/25 19:15 WBC 10.4 RBC 5.19 Hgb 15.1 Hct 45.4 MCV 87.5 MCH 29.1 MCHC 33.3 RDW Std Deviation 39.7 RDW Coeff of Tracy 12.5 Plt Count 247 MPV 11.0 Immature Gran % (Auto) 0.400 Neut % (Auto) 67.2 Lymph % (Auto) 20.3 [place] % (Auto) 7.5 Eos % (Auto) 3.8 Baso % (Auto) 0.8 Absolute Neuts (auto) 7.0 Absolute Lymphs (auto) 2.11 Nucleated RBC % 0 Sodium 141 Potassium 3.6 Chloride 103 Carbon Dioxide 27.3 Anion Gap 11 BUN 19 Creatinine 0.77 Estim Creat Clear Calc 96.37 Est GFR (MDRD) Non-Af 97 BUN/Creatinine Ratio 25.1 H Glucose 107 H Calcium 9.9 Troponin T High Sens < 6 Radiography Diagnostic Testing: Clinical Impression(s) from Imaging Studies Chest X-Ray 10/01/25 19:08 IMPRESSION: No acute cardiopulmonary disease. Reading Location: [facility] Brain CT 10/01/25 19:15 IMPRESSION: No acute intracranial abnormality. Reading Location: [facility] Discharge Plan Triage Chief Complaint: Hypertension ED Provider: Josue Callahan Dx/Rx/DC Orders Clinical Impression: Hypertension Instructions: Hypertension Dc Prescriptions: No Action rosuvastatin [Crestor] 40 MG tablet 40 mg PO DAILY aspirin 81 MG tablet,chewable 81 mg PO DAILY@0800 losartan-hydrochlorothiazide 100-25 mg tablet 1 tab PO DAILY amlodipine 10 mg tablet 10 mg PO DAILY ibuprofen [Advil] 200 mg tablet 400 mg PO Q4H PRN (Reason: fever or pain) Primary Care Provider: Ernesto Villavicencio Referrals: Ernesto Villavicencio MD [Primary Care Provider, Family Practice] Activity Restrictions/Additional Instructions: Thank you for trusting us with your care today! Your labs and images are reassuring. They showed no signs of damage to your brain heart or kidneys Please eat a low-sodium diet. Please limit foods that are prepackaged as they usually contain significant out of sodium. Please get daily exercise recommend at least 30-minute walk. Please discontinue smoking as this can also elevate your blood pressure. Please return to the emergency department if your symptoms change or worsen. Please follow with your primary care physician for further outpatient evaluation and management. Print Language: Samoan Disposition Disposition: Home, Self Care Discharge Date/Time: 10/01/25 21:10
[2025-10-01 19:00] VITALS: BP 148/102
--- NOTE | 2025-10-01 19:08 | RAD_ITS ---
PROCEDURE: CHEST 1 VIEW (PORTABLE) 10/01/2025 REASON FOR EXAM: ELEVATED BP TECHNIQUE: Frontal view of the chest. COMPARISON: 09/24/2025 FINDINGS: Lungs/Pleura: Clear. Heart/Mediastinum: Normal in size. Bones/Soft tissues: Mild degenerative changes of the spine. RAD/Chest 1 View (Portable) IMPRESSION: No acute cardiopulmonary disease. Reading Location: [id number]
--- NOTE | 2025-10-01 19:09 | EKG12_ITS ---
Test Reason : DYSRHYTHMIA Blood Pressure : */* mmHG Vent. Rate : 70 BPM Atrial Rate : 70 BPM P-R Int : 170 ms QRS Dur : 78 ms QT Int : 390 ms P-R-T Axes : 50 4 70 degrees QTcB Int : 421 ms Normal sinus rhythm Normal ECG Confirmed by Barney Alicia ([id number]), supervising film or videotape editor ROMMEL CONNER ([id number]) on 10/03/2025 10:19:07 AM Referred By: Confirmed By: Barney Alicia
--- NOTE | 2025-10-01 19:15 | CT_ITS ---
PROCEDURE: CT BRAIN/HEAD WITHOUT CONTRAST 10/01/2025 REASON FOR EXAM: ELEVATED BLOOD PRESSURE, HEADACHE TECHNIQUE: Procedure Code: CTBR Modality: CT Procedure: BRAIN/HEAD WITHOUT CONTRAST Coronal and Sagittal reconstruction series were provided. One or more dose reduction techniques were used (e.g., Automated exposure control, adjustment of the mA and/or kV according to patient size, use of iterative reconstruction technique. RADIATION DOSE SUMMARY: CTDlvol: 44.99 mGy DLP: 796.11 mGycm COMPARISON: 09/24/2025 FINDINGS: No acute intracranial hemorrhage, extra-axial collection, mass effect or evidence of acute infarct. Ventricles and subarachnoid spaces are normal in size. Orbital contents are unremarkable. Intact skull base and calvarium. Well-aerated paranasal sinuses and mastoid air cells. CT/Brain/Head without Contrast IMPRESSION: No acute intracranial abnormality. Reading Location: [id number]
[2025-10-01 19:18] VITALS: BP 151/75
[2025-10-01 19:28] LABS: Hematocrit 45.4 % (40-54); Hemoglobin 15.1 g/dL (13.0-16.5); Immature Granulocytes Count 0.040 X10^3/uL (0.0-0.0); Mean Corp Hgb Conc 33.3 g/dL (32-36); Mean Corpuscular Volume 87.5 fL (80-94); Mean Platelet Vol. 11.0 fl (6.2-12.0); NRBC Flagged by Analyzer 0 % (0-5); Platelet Count 247 K/mm3 (150-450); RBC Distribution Width CV 12.5 % (11.6-14.6); RBC Distribution Width SD 39.7 fl (35.1-43.9); Red Blood Count 5.19 M/mm3 (4.6-6.2); White Blood Count 10.4 K/mm3 (4.4-11.0)
[2025-10-01 20:03] LABS: Anion Gap 11 (5-15); BUN 19 mg/dL (4-19); BUN/Creat Ratio 25.1 RATIO (10-20); Calcium,Total 9.9 mg/dL (7.6-11.0); Carbon Dioxide 27.3 mmol/L (21.0-32.0); Chloride 103 mmol/L (98-108); Estimated Creatinine Clearance 96.37 ml/min (50-250); Glucose 107 mg/dL (70-99); Potassium 3.6 mmol/L (3.3-5.1)
[2025-10-01 20:36] LABS: Troponin T High Sensitivity < 6 ng/L (<=22)
--- OUTSIDE RECORDS SUMMARY | 2025-10-01 20:48 | XMS RPT_ITS | CCD ---
Author Organization [facility] Care Team Providers Care Miner Name Role Phone Ernesto Villavicencio Referring Unavailable Ernesto Villavicencio Attending Unavailable Ernesto [...] Interpretation Reference Range Facility Comprehensive Metabolic Prof [facility] 10-24-2024 Albumin [Mass/Vol] 3.6 g/dL Normal 3.2-5.0 [facility] Comment on above: Order Comment: Order Date: 07/20/24 Order Info: [id number] - CMP Order Info: [id number] - LIPID Order Info: [id number] - PSA Performed By: #### L 500.4050, L500.4100, [id number] #### [facility] [address] [place], [address] Albumin/Globulin [Mass ratio] 1.0 {ratio} Normal 0.9-2.4 [facility] Comment on above: Order Comment: Order Date: 07/20/24 Order Info: 86-1 - CMP Order Info: [id number] - LIPID Order Info: [id number] - PSA Performed By: #### L [id number], L500.4100, [id number] #### [facility] [address] [place], [address] ALK P 109 U/L Normal 45-117 [facility] Comment on above: Order Comment: Order Date: 07/20/24 Order Info: [id number] - CMP Order Info: [id number] - LIPID Order Info: [id number] - PSA Performed By: #### L [id number], [id number], [id number] #### [facility] [address] [place], [address] ALT [Catalytic activity/Vol] 43 U/L Normal 16-61 [facility] Comment on above: Order Comment: Order Date: 07/20/24 Order Info: [id number] - CMP Order Info: [id number] - LIPID Order Info: [id number] - PSA Performed By: #### L [id number], [id number], [id number] #### [facility] [address] [place], [address] AST [Catalytic activity/Vol] 21 U/L Normal 15-37 [facility] Comment on above: Order Comment: Order Date: 07/20/24 Order Info: [id number]- - CMP Order Info: [id number] - LIPID Order Info: [id number] - PSA Performed By: #### L [id number], [id number], [id number] #### [facility] [address] [place], [address] Bilirubin [Mass/Vol] 0.60 mg/dL Normal 0.20-1.00 [facility] Comment on above: Order Comment: Order Date: 07/20/24 Order Info: 86-1 - CMP Order Info: [id number] - LIPID Order Info: [id number] - PSA Result Comment: For patients on eltrombopag therapy, use of Dimension [place] TBIL is not recommended. Performed By: #### L [id number], [id number], [id number] #### [facility] [address] [place], [address] BUN/CRE 17.9 RATIO Normal 10-20 [facility] Comment on above: Order Comment: Order Date: 07/20/24 Order Info: 07-1 - CMP Order Info: [id number] - LIPID Order Info: [id number] - PSA Performed By: #### L [id number], [id number], [id number] #### [facility] [address] [place], [address] CA,Total 9.0 mg/dL Normal 8.5-10.1 [facility] Comment on above: Order Comment: Order Date: 07/20/24 Order Info: [id number]- - CMP Order Info: [id number] - LIPID Order Info: [id number] - PSA Performed By: #### L [id number], [id number], [id number] #### [facility] [address] [place], [address] Chloride [Moles/Vol] 106 mmol/L Normal 98-107 [facility] Comment on above: Order Comment: Order Date: 07/20/24 Order Info: [id number]- - CMP Order Info: [id number] - LIPID Order Info: [id number] - PSA Performed By: #### L [id number], [id number], [id number] #### [facility] [address] [place], [address] CO2 [Moles/Vol] 28.0 mmol/L Normal 21.0-32.0 [facility] Comment on above: Order Comment: Order Date: 07/20/24 Order Info: [id number] - CMP Order Info: [id number] - LIPID Order Info: [id number] - PSA Performed By: #### L [id number], [id number], [id number] #### [facility] [address] [place], [address] Creatinine [Mass/Vol] 0.78 mg/dL Normal 0.70-1.30 [facility] Comment on above: Order Comment: Order Date: 07/20/24 Order Info: [id number] - CMP Order Info: [id number] - LIPID Order Info: [id number] - PSA Result Comment: The validity of the calculated GFR GFRAA in patients over 70 years has not been determined. Clinical correlation is essential. Performed By: #### L [id number], [id number], [id number] #### [facility] [address] [place], [address] EST GFR - AA 127 mL/min Normal >60 [facility] Comment on above: Order Comment: Order Date: 07/20/24 Order Info: [id number] - CMP Order Info: [id number] - LIPID Order Info: [id number] - PSA Result Comment: Afri can Cymraes GFR Calc Performed By: #### L 500.4050, [id number], [id number] #### [facility] [address] [place], [address] GAP 4 Low 5-15 [facility] Comment on above: Order Comment: Order Date: 07/20/24 Order Info: [id number]- - CMP Order Info: [id number] - LIPID Order Info: [id number] - PSA Performed By: #### L [id number], [id number], [id number] #### [facility] [address] [place], [address] GFR/1.73 sq M.predicted among non-blacks MDRD (S/P/Bld) [Vol rate/Area] 105 mL/min/{1.73_m2} Normal >60 [facility] Comment on above: Order Comment: Order Date: 07/20/24 Order Info: 07- - CMP Order Info: - LIPID Order Info: [id number] - PSA Result Comment: Non- GFR Calc Performed By: #### L [id number], [id number], [id number] #### [facility] [address] [place], [address] Globulin (S) [Mass/Vol] 3.5 g/dL Normal 2.2-4.2 [facility] Comment on above: Order Comment: Order Date: 07/20/24 Order Info: [id number] - CMP Order Info: [id number] - LIPID Order Info: [id number] - PSA Performed By: #### L [id number], [id number], [id number] #### [facility] [address] [place], [address] Glucose [Mass/Vol] 97 mg/dL Normal 74-106 [facility] Comment on above: Order Comment: Order Date: 07/20/24 Order Info: [id number] - CMP Order Info: [id number] - LIPID Order Info: [id number] - PSA Performed By: #### L [id number], [id number], [id number] #### [facility] [address] [place], [address] Potassium [Moles/Vol] 3.8 mmol/L Normal 3.5-5.1 [facility] Comment on above: Order Comment: Order Date: 07/20/24 Order Info: [id number] - CMP Order Info: [id number] - LIPID Order Info: [id number] - PSA Performed By: #### L [id number], [id number], [id number] #### [facility] [address] [place], [address] Sodium [Moles/Vol] 138 mmol/L Normal 136-145 [facility] Comment on above: Order Comment: Order Date: 07/20/24 Order Info: 07- - CMP Order Info: [id number] - LIPID Order Info: [id number] - PSA Performed By: #### L [id number], [id number], [id number] #### [facility] [address] [place], [address] T PROT 7.1 g/dL Normal 6.4-8.2 [facility] Comment on above: Order Comment: Order Date: 07/20/24 Order Info: [id number]- - CMP Order Info: [id number] - LIPID Order Info: [id number] - PSA Performed By: #### L [id number], [id number], [id number] #### [facility] [address] [place], [address] Urea nitrogen [Mass/Vol] 14 mg/dL Normal 7-18 [facility] Comment on above: Order Comment: Order Date: 07/20/24 Order Info: [id number] - CMP Order Info: [id number] - LIPID Order Info: [id number] - PSA Performed By: #### L 500.4050, [id number], [id number] #### [facility] [address] [place], [address] Lipid Profileon 10-24-2024 Cholesterol [Mass/Vol] 170 mg/dL Normal [address] [facility] Comment on above: Order Comment: Order Date: 07/20/24 Order Info: [id number]- - CMP Order Info: [id number] - LIPID Order Info: [id number] - PSA Result Comment: <200 mg/dL Desirable 200-240 mg/dL Borderline >240 mg/dL High Risk Performed By: #### L [id number], [id number], [id number] #### [facility] [address] [place], [address] Cholesterol in HDL [Mass/Vol] 40 mg/dL Normal [facility] Comment on above: Order Comment: Order Date: 07/20/24 Order Info: [id number]- - CMP Order Info: [id number] - LIPID Order Info: [id number] - PSA Result Comment: The drugs N-Acetylcysteine and Metamizole may falsely depress this assay. Reference Range HDL <40 mg/dL Low HDL Cholesterol HDL >or= 60 mg/dL High HDL Cholesterol Performed By: #### L [id number], L500.4100, [id number] #### [facility] [address] [place], [address] Cholesterol in LDL [Mass/Vol] 110 mg/dL Normal 0-130 [facility] Comment on above: Order Comment: Order Date: 07/20/24 Order Info: [id number] - CMP Order Info: [id number] - LIPID Order Info: [id number] - PSA Performed By: #### L [id number], [id number], [id number] #### [facility] [address] [place], [address] Cholesterol in VLDL [Mass/Vol] 20 mg/dL Normal 5-40 [facility] Comment on above: Order Comment: Order Date: 07/20/24 Order Info: [id number] - CMP Order Info: [id number] - LIPID Order Info: [id number] - PSA Performed By: #### L 500.4050, [id number], [id number] #### [facility] [address] [place], [address] Triglyceride [Mass/Vol] 101 mg/dL Normal [facility] Comment on above: Order Comment: Order Date: 07/20/24 Order Info: [id number] - CMP Order Info: [id number] - LIPID Order Info: [id number] - PSA Result Comment: The drugs N-Acetylcysteine and Metamizole may falsely depress this assay. Serum Triglycerides Reference Interval Normal <150 mg/dL Borderline high 150 - 199 mg/dL High 200 - 499 mg/dL Very High > or = 500 mg/dL Performed By: #### L [id number], L500.4100, [id number] #### [facility] [address] [place], [address] PSA,Total - Annual Screenon 10-24-2024 PSA,TOT SCREEN 0.59 ng/mL Normal 0.00-4.00 [facility] Comment on above: Order Comment: Order Date: 07/20/24 Order Info: [id number] - CMP Order Info: [id number] - LIPID Order Info: [id number] - PSA Result Comment: This test was performed using the TPSA assay method for the [employer] chemistry system. Values obtained with different assay methods cannot be used interchangably. When changing PSA assays in the course of monitoring a patient, additional sequential testing should be carried out to confirm baseline values. Performed By: #### L [id number], L500.4100, [id number] #### [facility] [address] [place], [address] Basophil percentageOrdered B y: Franky Villavicencio on 04-13-2023 Bilirubin [Mass/Vol] 0.30 mg/dL 0.20-1.00 [facility] Comment on above: For patients on eltr ombopag therapy, use of Dimension [place] TBIL is not recommended. Chloride [Moles/Vol] 107 mmol/L 98-107 [facility] Cholesterol [Mass/Vol] 187 mg/dL <[address] [facility] Comment on above: <200 mg/dL Desirable 200-240 mg/dL Borderline >240 mg/dL High Risk Glucose [Mass/Vol] 80 mg/dL 74-106 [facility] Potassium [Moles/Vol] 3.8 mmol/L 3.5-5.1 [facility] Protein [Mass/Vol] 7.2 g/dL 6.4-8.2 [facility] Sodium [Moles/Vol] 137 mmol/L 136-145 [facility] Triglyceride [Mass/Vol] 170 mg/dL <199 [facility] Comment on above: The drugs N-Acetylcy steine and Metamizole may falsely depress this assay.Serum Triglycerides Reference Interval Normal <150 mg/dL Borderline high 150 - 199 mg/dL High 200 - 499 mg/dL Very High > or = 500 mg/dL Laboratory - Chemistry and C hemistry - challengeOrdered By: Franky Villavicencio on 04-13-2023 ALP [Catalytic activity/Vol] 115 U/L 45-117 [facility] ALT [Catalytic activity/Vol] 36 U/L 16-61 [facility] CO2 [Moles/Vol] 26.0 mmol/L 21.0-32.0 [facility] Globulin (S) [Mass/Vol] 3.5 g/dL 2.2-4.2 [facility] Urea nitrogen/Creatinine [Mass ratio] 16.7 mg/mg 10-20 [facility] No Panel InformationOrdered By: Franky Villavicencio on 04-13-2023 Estimated GFR (MDRD) Amer 118 mL/min >60 [facility] Comment on above: GFR Calc Estimated GFR (MDRD) Non-Af Amer 98 mL/min >60 [facility] Comment on above: Non- GFR Calc Prostate Specific Antigen Screen 0.57 ng/mL 0.00-4.00 [facility] Comment on above: This test was perfor med using the TPSA assay method for [employer] chemistry system. Values obtained with differentassay methods cannot be used interchangably.When changing PSA assays in the course of monitoring apatient, additional sequential testing should be carriedout to confirm baseline values. Serum or plasma albumin bridget urement (mass/volume)Ordered By: Franky Villavicencio on 04-13-2023 Albumin [Mass/Vol] 3.7 g/dL 3.2-5.0 [facility] Serum or plasma albumin/glob ulin mass ratioOrdered By: Franky Villavicencio on 04-13-2023 Albumin/Globulin [Mass ratio] 1.1 {ratio} 0.9-2.4 [facility] Serum or plasma calcium bridget urement (mass/volume)Ordered By: Franky Villavicencio on 04-13-2023 Calcium [Mass/Vol] 9.3 mg/dL 8.5-10.1 [facility] Serum or plasma cholesterol in HDL measurement (mass/volume)Ordered By: Franky Villavicencio on 04-13-2023 Cholesterol in HDL [Mass/Vol] 35 mg/dL >40 [facility] Comment on above: The drugs N-Acetylcy steine and Metamizole may falsely depress this assay. Reference Range HDL <40 mg/dL Low HDL Cholesterol HDL >or= 60 mg/dL High HDL Cholesterol Serum or plasma cholesterol in VLDL measurement (mass/volume)Ordered By: Franky Villavicencio on 04-13-2023 Cholesterol in VLDL [Mass/Vol] 34 mg/dL 5-40 [facility] Serum or plasma creatinine m easurement (mass/volume)Ordered By: Franky Villavicencio on 04-13-2023 Creatinine [Mass/Vol] 0.84 mg/dL 0.70-1.30 [facility] Comment on above: The validity of the calculated GFR & GFRAA in patients over 70 years has not been determined. Clinical correlation is essential. Serum or plasma low density lipoprotein (LDL) cholesterol measurement (mass/volume)Ordered By: Franky Villavicencio on 04-13-2023 Cholesterol in LDL [Mass/Vol] 118 mg/dL 0-130 [facility] Serum or plasma urea nitroge n measurement (mass/volume)Ordered By: Franky Villavicencio on 04-13-2023 Urea nitrogen [Mass/Vol] 14 mg/dL 7-18 [facility] Thin prep Papanicolaou smear with manual screeningOrdered By: Franky Villavicencio on 04-13-2023 Thin prep Papanicolaou smear with manual screening 25 U/L 15-37 [facility] Thin prep Papanicolaou smear with manual screening 4 5-15 [facility] Vital Signs Date Time Vital Sign Value Performing Clinician Danielle lovell 01-20-2022 10:03-040 Body height 172.72 cm [facility] Work Phone: 01-20-2022 10:03-0400 Body mass index (BMI) [Ratio] 28.1 kg/m2 [facility] Work Phone: 01-20-2022 10:03-0400 Body temperature 97.9 [degF] [facility] Work Phone: 01-20-2022 10:03-0400 Body weight 83.91 kg [facility] Work Phone: 01-20-2022 10:03-0400 Diastolic blood pressure 96 mm[Hg] [facility] Work Phone: 01-20-2022 10:03-0400 Heart rate 83 /min [facility] Work Phone: 01-20-2022 10:03-0400 Respiratory rate 16 /min [facility] ty [facility] Work Phone: 01-20-2022 10:03-0400 SaO2% (BldA) [Mass fraction] 97 % [facility] Work Phone: 01-20-2022 10:03-0400 Systolic blood pressure 206 mm[Hg] [facility] Work Phone: Encounters Encounter Date Encounter Type Care Provider Facility Start: 10-24-2024 End: 10-24-2024 ambulatory [facility] [place] Facility:[facility] Start: 04-13-2023 End: 04-13-2023 ambulatory [facility] Work Phone: Start: 04-13-2023 End: 04-13-2023 Patient encounter procedure [facility] Start: 01-20-2022 End: 01-20-2022 Emergency department patient visit [facility]Emergency Department Procedures Date Procedure Procedure Detail Performing Clinician Start: 01-20-2022 Diagnostic radiograp hy of finger Plan of Treatment Date Care Activity Detail Author Patient Education ED Open Hand F racture (Adult) ED Laceration, Hand: All Closures ED Detached Fingernail or Toenail [facility] Work Phone: Patient referral [facility] Work Phone: Payers Date Payer Category Payer Self-pay [id number] 2016 Private Health Insurance [id number] 2010 Unknown [id number] Unknown [id number] Social History Date Type Detail Facility Start: 01-20-2022 Tobacco smoking stat us [facility]IS Unknown if ever smoked [facility] Start: 1955 Sex Assigned At Male [facility] Evaluation note Note Date & Type Note Facility Evaluation note No assessment information availa ble [facility] Work Phone: Hospital Discharge instructions Note Date & Type Note Facility Hospital Discharge instructions Additional Instructions Please follow-up with orthopedic office for removal of the splint for the nail. Call tomorrow or later today to make an appointment. The finger sutures (black ones) need to be removed in 10 days. [facility] Work Phone: Chief Complaint and Reason for [...] No January 20, 2022 10:17am Power of Physical Anthropologist No January 20 10:17am Summary Purpose Additional [...] section and content) DATE CREATED AUTHOR 11/16/2024 [facility] FOR RECORDS PERTAINING TO PATIENTS WHO ARE [...] BE BASED ON THE PRIMARY CLINICAL RECORDS. [facility] [facility]. provides no warranty or guarantee of the accuracy or completeness of information in this document.
[2025-10-01 21:00] VITALS: BP 122/75; PULSE 62; RESP 16; TEMP 37; O2SAT 95
== END 2025-10-01 21:10 | disposition home or self-care (01) ==
PROVIDERS: Emergency Provider Emergency Medicine; PCP Family Medicine; Visit Provider Emergency Medicine
DX: I10 Essential (primary) hypertension (principal); Z79.82 Long term (current) use of aspirin; F17.200 Nicotine dependence, unspecified, uncomplicated; Z79.899 Other long term (current) drug therapy
CPT/HCPCS: 70450; 71045; 80048; 84484; 85025; 93005; 99285

== ENCOUNTER 2025-10-04 02:35 | Emergency (ER) | payer MEDICARE, OTHER, SELFPAY ==
[2025-10-04 02:39] VITALS: BP 179/81; PULSE 71; RESP 12; TEMP 36.4; O2SAT 99; BMI 28.0
--- NOTE | 2025-10-04 02:54 | EKG12_ITS ---
Test Reason : CP Blood Pressure : */* mmHG Vent. Rate : 67 BPM Atrial Rate : 67 BPM P-R Int : 156 ms QRS Dur : 80 ms QT Int : 394 ms P-R-T Axes : 11 3 74 degrees QTcB Int : 416 ms Normal sinus rhythm Normal ECG Confirmed by Barney Alicia ([id number]), fashion editor OSWALDO GEURIN ([id number]) on 10/05/2025 10:30:03 AM Referred By: Confirmed By: Barney Alicia
[2025-10-04 03:04] VITALS: BP 138/69; PULSE 61; RESP 16; O2SAT 97
[2025-10-04 03:08] LABS: Hematocrit 43.3 % (40-54); Hemoglobin 14.5 g/dL (13.0-16.5); Immature Granulocytes Count 0.020 X10^3/uL (0.0-0.0); Mean Corp Hgb Conc 33.5 g/dL (32-36); Mean Corpuscular Volume 86.6 fL (80-94); Mean Platelet Vol. 10.8 fl (6.2-12.0); NRBC Flagged by Analyzer 0 % (0-5); Platelet Count 233 K/mm3 (150-450); RBC Distribution Width CV 12.4 % (11.6-14.6); RBC Distribution Width SD 39.3 fl (35.1-43.9); Red Blood Count 5.00 M/mm3 (4.6-6.2); White Blood Count 10.7 K/mm3 (4.4-11.0)
--- OUTSIDE RECORDS SUMMARY | 2025-10-04 03:08 | XMS RPT_ITS | CCD ---
Author Organization [facility] Care Team Providers Care Electrician Supervisor Name Role Phone Ernesto Villavicencio Referring Unavailable [...] Interpretation Reference Range Facility Comprehensive Metabolic Prof [facility] 10-24-2024 Albumin [Mass/Vol] 3.6 g/dL Normal 3.2-5.0 [facility] Comment on above: Order Comment: Order Date: 07/20/24 Order Info: [id number] - CMP Order Info: [id number] - LIPID Order Info: [id number] - PSA Performed By: #### L 500.4050, L500.4100, L501.9910 #### [facility] [address] [place], [address] Albumin/Globulin [Mass ratio] 1.0 {ratio} Normal 0.9-2.4 [facility] Comment on above: Order Comment: Order Date: 07/20/24 Order Info: 86-1 - CMP Order Info: [id number] - LIPID Order Info: [id number] - PSA Performed By: #### L 500.4050, L500.4100, L501.9910 #### [facility] [address] [place], [address] ALK P 109 U/L Normal 45-117 [facility] Comment on above: Order Comment: Order Date: 07/20/24 Order Info: 86-1 - CMP Order Info: [id number] - LIPID Order Info: [id number] - PSA Performed By: #### L 500.4050, L500.4100, L501.9910 #### [facility] [address] [place], [address] ALT [Catalytic activity/Vol] 43 U/L Normal 16-61 [facility] Comment on above: Order Comment: Order Date: 07/20/24 Order Info: 86-1 - CMP Order Info: [id number] - LIPID Order Info: [id number] - PSA Performed By: #### L 500.4050, L500.4100, L501.9910 #### [facility] [address] [place], [address] AST [Catalytic activity/Vol] 21 U/L Normal 15-37 [facility] Comment on above: Order Comment: Order Date: 07/20/24 Order Info: 785- - CMP Order Info: [id number] - LIPID Order Info: [id number] - PSA Performed By: #### L 500.4050, L500.4100, L501.9910 #### [facility] [address] [place], [address] Bilirubin [Mass/Vol] 0.60 mg/dL Normal 0.20-1.00 [facility] Comment on above: Order Comment: Order Date: 07/20/24 Order Info: 86-1 - CMP Order Info: [id number] - LIPID Order Info: 7-1 - PSA Result Comment: For patients on eltrombopag therapy, use of Dimension [place] TBIL is not recommended. Performed By: #### L 500.4050, L500.4100, L501.9910 #### [facility] [address] [place], [address] BUN/CRE 17.9 RATIO Normal 10-20 [facility] Comment on above: Order Comment: Order Date: 07/20/24 Order Info: 07-1 - CMP Order Info: [id number] - LIPID Order Info: [id number] - PSA Performed By: #### L 500.4050, L500.4100, L501.9910 #### [facility] [address] [place], [address] CA,Total 9.0 mg/dL Normal 8.5-10.1 [facility] Comment on above: Order Comment: Order Date: 07/20/24 Order Info: 0786- - CMP Order Info: [id number] - LIPID Order Info: [id number] - PSA Performed By: #### L 500.4050, L500.4100, L501.9910 #### [facility] [address] [place], [address] Chloride [Moles/Vol] 106 mmol/L Normal 98-107 [facility] Comment on above: Order Comment: Order Date: 07/20/24 Order Info: 0786- - CMP Order Info: [id number] - LIPID Order Info: [id number] - PSA Performed By: #### L 500.4050, L500.4100, L501.9910 #### [facility] [address] [place], [address] CO2 [Moles/Vol] 28.0 mmol/L Normal 21.0-32.0 [facility] Comment on above: Order Comment: Order Date: 07/20/24 Order Info: [id number] - CMP Order Info: [id number] - LIPID Order Info: [id number]- - PSA Performed By: #### L 500.4050, L500.4100, L501.9910 #### [facility] [address] [place], [address] Creatinine [Mass/Vol] 0.78 mg/dL Normal 0.70-1.30 [facility] Comment on above: Order Comment: Order Date: 07/20/24 Order Info: [id number] - CMP Order Info: [id number] - LIPID Order Info: [id number] - PSA Result Comment: The validity of the calculated GFR GFRAA in patients over 70 years has not been determined. Clinical correlation is essential. Performed By: #### L 500.4050, L500.4100, L501.9910 #### [facility] [address] [place], [address] EST GFR - AA 127 mL/min Normal >60 [facility] Comment on above: Order Comment: Order Date: 07/20/24 Order Info: [id number] - CMP Order Info: [id number] - LIPID Order Info: [id number] - PSA Result Comment: Afri can Maltese GFR Calc Performed By: #### L 500.4050, L500.4100, L501.9910 #### [facility] [address] [place], [address] GAP 4 Low 5-15 [facility] Comment on above: Order Comment: Order Date: 07/20/24 Order Info: 0786- - CMP Order Info: [id number] - LIPID Order Info: [id number] - PSA Performed By: #### L 500.4050, L500.4100, L501.9910 #### [facility] [address] [place], [address] GFR/1.73 sq M.predicted among non-blacks MDRD (S/P/Bld) [Vol rate/Area] 105 mL/min/{1.73_m2} Normal >60 [facility] Comment on above: Order Comment: Order Date: 07/20/24 Order Info: 07- - CMP Order Info: - LIPID Order Info: [id number] - PSA Result Comment: Non- GFR Calc Performed By: #### L 500.4050, L500.4100, L501.9910 #### [facility] [address] [place], [address] Globulin (S) [Mass/Vol] 3.5 g/dL Normal 2.2-4.2 [facility] Comment on above: Order Comment: Order Date: 07/20/24 Order Info: [id number] - CMP Order Info: [id number] - LIPID Order Info: [id number] - PSA Performed By: #### L 500.4050, L500.4100, L501.9910 #### [facility] [address] [place], [address] Glucose [Mass/Vol] 97 mg/dL Normal 74-106 [facility] Comment on above: Order Comment: Order Date: 07/20/24 Order Info: [id number] - CMP Order Info: [id number] - LIPID Order Info: [id number] - PSA Performed By: #### L 500.4050, L500.4100, L501.9910 #### [facility] [address] [place], [address] Potassium [Moles/Vol] 3.8 mmol/L Normal 3.5-5.1 [facility] Comment on above: Order Comment: Order Date: 07/20/24 Order Info: [id number] - CMP Order Info: [id number] - LIPID Order Info: [id number] - PSA Performed By: #### L 500.4050, L500.4100, L501.9910 #### [facility] [address] [place], [address] Sodium [Moles/Vol] 138 mmol/L Normal 136-145 [facility] Comment on above: Order Comment: Order Date: 07/20/24 Order Info: 07- - CMP Order Info: [id number] - LIPID Order Info: [id number]- - PSA Performed By: #### L 500.4050, L500.4100, L501.9910 #### [facility] [address] [place], [address] T PROT 7.1 g/dL Normal 6.4-8.2 [facility] Comment on above: Order Comment: Order Date: 07/20/24 Order Info: 0786- - CMP Order Info: [id number] - LIPID Order Info: [id number] - PSA Performed By: #### L 500.4050, L500.4100, L501.9910 #### [facility] [address] [place], [address] Urea nitrogen [Mass/Vol] 14 mg/dL Normal 7-18 [facility] Comment on above: Order Comment: Order Date: 07/20/24 Order Info: 0786 - CMP Order Info: [id number] - LIPID Order Info: [id number] - PSA Performed By: #### L 500.4050, L500.4100, L501.9910 #### [facility] [address] [place], [address] Lipid Profileon 10-24-2024 Cholesterol [Mass/Vol] 170 mg/dL Normal [address] [place] Comment on above: Order Comment: Order Date: 07/20/24 Order Info: 0786- - CMP Order Info: [id number] - LIPID Order Info: [id number] - PSA Result Comment: <200 mg/dL Desirable 200-240 mg/dL Borderline >240 mg/dL High Risk Performed By: #### L 500.4050, L500.4100, L501.9910 #### [facility] [address] [place], [address] Cholesterol in HDL [Mass/Vol] 40 mg/dL Normal [facility] Comment on above: Order Comment: Order Date: 07/20/24 Order Info: 0786- - CMP Order Info: [id number] - LIPID Order Info: [id number] - PSA Result Comment: The drugs N-Acetylcysteine and Metamizole may falsely depress this assay. Reference Range HDL <40 mg/dL Low HDL Cholesterol HDL >or= 60 mg/dL High HDL Cholesterol Performed By: #### L 500.4050, L500.4100, L501.9910 #### [facility] [address] [place], [address] Cholesterol in LDL [Mass/Vol] 110 mg/dL Normal 0-130 [facility] Comment on above: Order Comment: Order Date: 07/20/24 Order Info: [id number] - CMP Order Info: [id number] - LIPID Order Info: [id number] - PSA Performed By: #### L 500.4050, L500.4100, L501.9910 #### [facility] [address] [place], [address] Cholesterol in VLDL [Mass/Vol] 20 mg/dL Normal 5-40 [facility] Comment on above: Order Comment: Order Date: 07/20/24 Order Info: [id number] - CMP Order Info: [id number] - LIPID Order Info: [id number] - PSA Performed By: #### L 500.4050, L500.4100, L501.9910 #### [facility] [address] [place], [address] Triglyceride [Mass/Vol] 101 mg/dL Normal [facility] Comment on above: Order Comment: Order Date: 07/20/24 Order Info: [id number] - CMP Order Info: [id number] - LIPID Order Info: [id number]- - PSA Result Comment: The drugs N-Acetylcysteine and Metamizole may falsely depress this assay. Serum Triglycerides Reference Interval Normal <150 mg/dL Borderline high 150 - 199 mg/dL High 200 - 499 mg/dL Very High > or = 500 mg/dL Performed By: #### L 500.4050, L500.4100, L501.9910 #### [facility] [address] [place], [address] PSA,Total - Annual Screenon 10-24-2024 PSA,TOT SCREEN 0.59 ng/mL Normal 0.00-4.00 [facility] Comment on above: Order Comment: Order Date: 07/20/24 Order Info: [id number] - CMP Order Info: [id number] - LIPID Order Info: [id number] - PSA Result Comment: This test was performed using the TPSA assay method for the [employer] chemistry system. Values obtained with different assay methods cannot be used interchangably. When changing PSA assays in the course of monitoring a patient, additional sequential testing should be carried out to confirm baseline values. Performed By: #### L 500.4050, L500.4100, L501.9910 #### [facility] [address] [place], [address] Basophil percentageOrdered B y: Franky Villavicencio on 04-13-2023 Bilirubin [Mass/Vol] 0.30 mg/dL 0.20-1.00 [facility] Comment on above: For patients on eltr ombopag therapy, use of Dimension [place] TBIL is not recommended. Chloride [Moles/Vol] 107 mmol/L 98-107 [facility] Cholesterol [Mass/Vol] 187 mg/dL <200 [place] Comment on above: <200 mg/dL Desirable 200-240 mg/dL Borderline >240 mg/dL High Risk Glucose [Mass/Vol] 80 mg/dL 74-106 [facility] Potassium [Moles/Vol] 3.8 mmol/L 3.5-5.1 [facility] Protein [Mass/Vol] 7.2 g/dL 6.4-8.2 [facility] Sodium [Moles/Vol] 137 mmol/L 136-145 [facility] Triglyceride [Mass/Vol] 170 mg/dL <199 [facility] Comment on above: The drugs N-Acetylcy steine and Metamizole may falsely depress this assay.Serum Triglycerides Reference Interval Normal <150 mg/dL Borderline high 150 - 199 mg/dL High 200 - 499 mg/dL Very High > or = 500 mg/dL Laboratory - Chemistry and C hemistry - challengeOrdered By: Franky Villavicencio on 04-13-2023 ALP [Catalytic activity/Vol] 115 U/L 45-117 [facility] ALT [Catalytic activity/Vol] 36 U/L 16-61 [facility] CO2 [Moles/Vol] 26.0 mmol/L 21.0-32.0 [facility] Globulin (S) [Mass/Vol] 3.5 g/dL 2.2-4.2 [facility] Urea nitrogen/Creatinine [Mass ratio] 16.7 mg/mg 10-20 [facility] No Panel InformationOrdered By: Franky Villavicencio on 04-13-2023 Estimated GFR (MDRD) Amer 118 mL/min >60 [facility] Comment on above: GFR Calc Estimated GFR (MDRD) Non-Af Amer 98 mL/min >60 [facility] Comment on above: Non- GFR Calc Prostate Specific Antigen Screen 0.57 ng/mL 0.00-4.00 [facility] Comment on above: This test was perfor med using the TPSA assay method for [employer] chemistry system. Values obtained with differentassay methods cannot be used interchangably.When changing PSA assays in the course of monitoring apatient, additional sequential testing should be carriedout to confirm baseline values. Serum or plasma albumin bridget urement (mass/volume)Ordered By: Franky Villavicencio on 04-13-2023 Albumin [Mass/Vol] 3.7 g/dL 3.2-5.0 [facility] Serum or plasma albumin/glob ulin mass ratioOrdered By: Franky Villavicencio on 04-13-2023 Albumin/Globulin [Mass ratio] 1.1 {ratio} 0.9-2.4 [facility] Serum or plasma calcium brdiget urement (mass/volume)Ordered By: Franky Villavicencio on 04-13-2023 Calcium [Mass/Vol] 9.3 mg/dL 8.5-10.1 [facility] Serum or plasma cholesterol in HDL measurement (mass/volume)Ordered By: Franky Villavicencio on 04-13-2023 Cholesterol in HDL [Mass/Vol] 35 mg/dL >40 [facility] Comment on above: The drugs N-Acetylcy steine and Metamizole may falsely depress this assay. Reference Range HDL <40 mg/dL Low HDL Cholesterol HDL >or= 60 mg/dL High HDL Cholesterol Serum or plasma cholesterol in VLDL measurement (mass/volume)Ordered By: Franky Villavicencio on 04-13-2023 Cholesterol in VLDL [Mass/Vol] 34 mg/dL 5-40 [facility] Serum or plasma creatinine m easurement (mass/volume)Ordered By: Franky Villavicencio on 04-13-2023 Creatinine [Mass/Vol] 0.84 mg/dL 0.70-1.30 [facility] Comment on above: The validity of the calculated GFR & GFRAA in patients over 70 years has not been determined. Clinical correlation is essential. Serum or plasma low density lipoprotein (LDL) cholesterol measurement (mass/volume)Ordered By: Franky Villavicencio on 04-13-2023 Cholesterol in LDL [Mass/Vol] 118 mg/dL 0-130 [facility] Serum or plasma urea nitroge n measurement (mass/volume)Ordered By: Franky Villavicencio on 04-13-2023 Urea nitrogen [Mass/Vol] 14 mg/dL 7-18 [facility] Thin prep Papanicolaou smear with manual screeningOrdered By: Franky Villavicencio on 04-13-2023 Thin prep Papanicolaou smear with manual screening 25 U/L 15-37 [facility] Thin prep Papanicolaou smear with manual screening 4 5-15 [facility] Vital Signs Date Time Vital Sign Value Performing Clinician Danielle lovell 01-20-2022 10:03-040 Body height 172.72 cm [facility] Work Phone: 01-20-2022 10:03-0400 Body mass index (BMI) [Ratio] 28.1 kg/m2 [facility] Work Phone: 01-20-2022 10:03-0400 Body temperature 97.9 [degF] [facility] Work Phone: 01-20-2022 10:03-0400 Body weight 83.91 kg [facility] Work Phone: 01-20-2022 10:03-0400 Diastolic blood pressure 96 mm[Hg] [facility] Work Phone: 01-20-2022 10:03-0400 Heart rate 83 /min [facility] Work Phone: 01-20-2022 10:03-0400 Respiratory rate 16 /min [facility] Work Phone: 01-20-2022 10:03-0400 SaO2% (BldA) [Mass fraction] 97 % [facility] Work Phone: 01-20-2022 10:03-0400 Systolic blood pressure 206 mm[Hg] [facility] Work Phone: Encounters Encounter Date Encounter Type Care Provider Facility Start: 10-24-2024 End: 10-24-2024 ambulatory [facility] Facility:[facility] Start: 04-13-2023 End: 04-13-2023 ambulatory [facility] Work Phone: Start: 04-13-2023 End: 04-13-2023 Patient encounter procedure [facility] Start: 01-20-2022 End: 01-20-2022 Emergency department patient visit [facility] Procedures Date Procedure Procedure Detail Performing Clinician Start: 01-20-2022 Diagnostic radiograp hy of finger Plan of Treatment Date Care Activity Detail Author Patient Education ED Open Hand F racture (Adult) ED Laceration, Hand: All Closures ED Detached Fingernail or Toenail [facility] Work Phone: Patient referral [facility] Work Phone: Payers Date Payer Category Payer Self-pay [id number] 2016 Private Health Insurance [id number] 2010 Unknown [id number] Unknown [id number] Social History Date Type Detail Facility Start: 01-20-2022 Tobacco smoking stat us [facility]IS Unknown if ever smoked [facility] Start: 1955 Sex Assigned At Male [facility] Evaluation note Note Date & Type Note Facility Evaluation note No assessment information availa ble [facility] Work Phone: Hospital Discharge instructions Note Date & Type Note Facility Hospital Discharge instructions Additional Instructions Please follow-up with orthopedic office for removal of the splint for the nail. Call tomorrow or later today to make an appointment. The finger sutures (black ones) need to be removed in 10 days. [facility] Work Phone: Chief Complaint and Reason for [...] No January 20, 2022 10:17am Power of Doctor'S Assistant No January 20 10:17am Summary Purpose Additional [...] section and content) DATE CREATED AUTHOR 11/16/2024 [facility] FOR RECORDS PERTAINING TO PATIENTS WHO ARE [...] BE BASED ON THE PRIMARY CLINICAL RECORDS. [facility] [address] [facility]. provides no warranty or guarantee of the accuracy or completeness of information in this document.
--- NOTE | 2025-10-04 03:25 | RAD_ITS ---
PROCEDURE: CHEST PA AND LATERAL 10/04/2025 REASON FOR EXAM: CHEST PAIN TECHNIQUE: Procedure Code: RADCXR Modality: DX Procedure: CHEST PA AND LATERAL COMPARISON: 10/01/2025 FINDINGS: The lungs are expanded. There is no demonstrated parenchymal abnormality. There is no demonstrated pleural abnormality. Normal heart and pericardium. Aortic calcifications noted. No acute osseous abnormalities. Thoracic spondylosis. There is no demonstrated abnormality of the visualized soft tissue structures of the upper abdomen. RAD/Chest PA and Lateral IMPRESSION: No acute cardiopulmonary process. No new acute findings. Reading [facility]
[2025-10-04 04:00] VITALS: BP 119/67; PULSE 56; RESP 18; O2SAT 97
[2025-10-04 04:11] LABS: D-Dimer Quantitative (DVT/PE) 0.30 FEU/ug/m (0.27-0.49)
[2025-10-04 04:19] LABS: Magnesium 2.2 mg/dL (1.5-2.2); Troponin T High Sensitivity < 6 ng/L (<=22)
[2025-10-04 04:27] LABS: Anion Gap 13 (5-15); BUN 24 mg/dL (4-19); BUN/Creat Ratio 27.4 RATIO (10-20); Calcium,Total 9.8 mg/dL (7.6-11.0); Carbon Dioxide 23.1 mmol/L (21.0-32.0); Chloride 99 mmol/L (98-108); Estimated Creatinine Clearance 89.33 ml/min (50-250); Glucose 142 mg/dL (70-99); Potassium 3.3 mmol/L (3.3-5.1)
--- NOTE | 2025-10-04 04:45 | EX.ED.DYSGE1 ---
HPI History of Present Illness Chief Complaint: Chest Pain Informant: patient and spouse/S.O. Narrative Narrative: Patient is a 69-year-old male with past medical history of hypertension hyperlipidemia and GERD. He states he was sitting in his recliner watching TV this evening. He states while he was doing so he developed a sudden onset sharp pain along the left lateral chest wall that started around the lower chest and radiated towards his left shoulder. He states the pain only lasted a few seconds and there was no associated nausea vomiting diaphoresis or shortness of breath. He states that roughly 20 to 30 minutes later the same sensation happened again. He states he could not correlate it with breathing or movement and he denies any recent trauma or excessive activity. He states that he had concerned that the abnormal chest discomfort could be related to a cardiac event and with this presents for evaluation [facility] Medical History GERD (gastroesophageal reflux disease) HTN (hypertension) Medical History no medical history Home Medications ?Medication ?Instructions ?Recorded ?Last Taken ?Type aspirin 81 mg chewable tablet 81 mg PO DAILY@0800 04/06/18 09/30/25 History rosuvastatin 40 mg tablet (Crestor) 40 mg PO DAILY 04/06/18 09/30/25 History amlodipine 10 mg tablet 10 mg PO DAILY 09/24/25 09/30/25 History ibuprofen 200 mg tablet (Advil) 400 mg PO Q4H PRN fever or pain 09/24/25 09/23/25 History losartan 100 1 tab PO DAILY 10/01/25 09/30/25 History mg-hydrochlorothiazide 25 mg tablet metoprolol tartrate 25 mg tablet 25 mg PO BID 10/04/25 Unknown History Allergy/AdvReac Type Severity Reaction Status Date / Time No Known Allergies Allergy Verified 10/04/25 02:42 Surgical History no surgical history Social History Smoking Status: Heavy Smoker (>10/day) ROS ROS ED Constitutional Constitutional ED: Denies chills or fever(s) Eyes Eyes: Denies blurry vision or change in vision ENT ENT ED: Denies sore throat Cardiovascular Cardiovascular: Reports chest pain; Denies palpitations or racing heartbeat Respiratory/Chest Respiratory/Chest: Denies cough or dyspnea Gastrointestinal Gastrointestinal: Denies abdominal pain, diarrhea, nausea or vomiting Musculoskeletal Musculoskeletal: Denies back pain Integumentary Denies rash Neurologic Neurologic: Denies headache(s) Hematologic/Lymphatic Hematologic/Lymphatic: Denies easy bleeding or easy bruising EXAM Physical Exam Const Vital Signs: 10/04/25 02:39 10/04/25 02:41 10/04/25 03:04 Temperature 97.6 F L Temperature Source Oral Pulse Rate 71 61 Respiratory Rate 12 16 Respiratory Effort Normal Blood Pressure 179/81 H 138/69 H Blood Pressure Mean 113 92 Pulse Ox 99 97 Oxygen Delivery Method Room Air Room Air 10/04/25 04:00 10/04/25 05:02 Temperature 16 F L Temperature Source Pulse Rate 56 L 55 L Respiratory Rate 18 11 L Respiratory Effort Blood Pressure 119/67 105/68 Blood Pressure Mean 84 80 Pulse Ox 97 98 Oxygen Delivery Method Room Air Positive well nourished and well developed General Appearance ED: well developed; Negative for pallor HEENT HEENT Narrative: Normocephalic atraumatic Eyes PERRL and EOMs intact bilaterally General Eye ED: Negative for scleral icterus Neck supple Chest Wall palpation of chest normal Chest Narrative: No bony deformity or subcutaneous emphysema noted No pain with palpation Resp normal respiratory effort and clear to auscultation bilaterally Cardio regular rate and regular rhythm Rate: other Other Details: Heart is regular rate and rhythm without murmurs rubs or gallop Radial and carotid pulses are equal and symmetric No carotid bruit noted GI normal to inspection, nondistended, normoactive bowel sounds, non-tender, non-distended and no masses GI Narrative: No voluntary guarding or rigidity No pulsatile mass No peritoneal signs Auscultation: normoactive bowel sounds Palpation: soft Extremity normal to inspection Extremity Narrative: No asymmetric edema no pitting edema negative Homans' sign bilaterally Neuro oriented x3, CN's II-XII intact bilaterally and no sensory deficits noted Sensorium / Orientation: alert Motor Exam: strength 5/5 throughout Psych mental status grossly normal Skin no rashes or lesions noted and no wounds General Skin Exam: Negative for jaundice or pallor MDM MDM MDM Narrative Medical decision making narrative: Patient arrived to the ER hypertensive but has a past medical history of this and otherwise with stable vitals. He reported a sharp left-sided chest pain that only lasted a few seconds without any associated symptoms. This would be very atypical for acute coronary syndrome. However he does have risk factors for this and therefore elected to perform basic laboratory studies. Based on his report of sharp pain radiating up out of the left lateral chest wall there is concern this could be potential pulmonary embolus or dissection so D-dimer was added. In order to assess for lung pathology such as pneumonia or pneumothorax a chest x-ray was ordered as well. Lab work revealed no clinically significant findings. Mainly his troponin was less than 6 and this is the exact same value that he had on 10-01 and therefore I feel no need for delta troponin. The chest x-ray revealed no lung pathology such as pneumonia or pneumothorax. On reevaluation his vitals have spontaneously improved and he states has been no return of the pain that he felt at home. Therefore with spontaneous resolution of symptoms as well as spontaneous improvement of vital signs and overall negative workup there is no need for further intervention and is otherwise safe for discharge History & Record Review Discussion w/independent historian: Patient and Significant other Lab Data Attestation: I reviewed the patient's lab results. Labs: Laboratory Results - last 24 hr 10/04/25 03:00 WBC 10.7 RBC 5.00 Hgb 14.5 Hct 43.3 MCV 86.6 MCH 29.0 MCHC 33.5 RDW Std Deviation 39.3 RDW Coeff of [place] 12.4 Plt Count 233 MPV 10.8 Immature Gran % (Auto) 0.200 Neut % (Auto) 56.6 Lymph % (Auto) 29.4 [place] % (Auto) 8.5 Eos % (Auto) 4.5 Baso % (Auto) 0.8 Absolute Neuts (auto) 6.0 Absolute Lymphs (auto) 3.13 Nucleated RBC % 0 D-Dimer Quant (PE/DVT) 0.30 Sodium 135 Potassium 3.3 Chloride 99 Carbon Dioxide 23.1 Anion Gap 13 BUN 24 H Creatinine 0.86 Estim Creat Clear Calc 89.33 Est GFR (MDRD) Non-Af 94 BUN/Creatinine Ratio 27.4 H Glucose 142 H Calcium 9.8 Magnesium 2.2 Troponin T High Sens < 6 Radiography Diagnostic Testing: Clinical Impression(s) from Imaging Studies Chest X-Ray 10/04/25 03:25 IMPRESSION: No acute cardiopulmonary process. No new acute findings. Reading Location: [place] [id number] 2 view chest x-ray as interpreted by the emergency medicine physician reveals no acute infiltrate pneumothorax or widened mediastinum Discharge Plan Triage Chief Complaint: Chest Pain ED Provider: Jostin Urrutia Dx/Rx/DC Orders Clinical Impression: Nonspecific chest pain, Hypertension, GERD (gastroesophageal reflux disease), Hyperlipidemia Instructions: ED Chest Pain, Uncertain Cause Prescriptions: No Action rosuvastatin [Crestor] 40 MG tablet 40 mg PO DAILY aspirin 81 MG tablet,chewable 81 mg PO DAILY@0800 losartan-hydrochlorothiazide 100-25 mg tablet 1 tab PO DAILY metoprolol tartrate 25 mg tablet 25 mg PO BID amlodipine 10 mg tablet 10 mg PO DAILY ibuprofen [Advil] 200 mg tablet 400 mg PO Q4H PRN (Reason: fever or pain) Primary Care Provider: Ernesto Villavicencio Referrals: Ernesto Villavicencio MD [Primary Care Provider, Family Practice] Activity Restrictions/Additional Instructions: Your workup today revealed no sign of abnormal heart rhythm or active heart damage. Please continue all of your home medications as directed by your doctor and return to the ER should you have any further concerns or worsening of symptoms Print Language: Moroccan Disposition Disposition: Home, Self Care Discharge Date/Time: 10/04/25 05:03
[2025-10-04 05:02] VITALS: BP 105/68; PULSE 55; RESP 11; TEMP -8.8; TEMP 16; O2SAT 98
== END 2025-10-04 05:03 | disposition home or self-care (01) ==
PROVIDERS: Emergency Provider Emergency Medicine; PCP Family Medicine; Visit Provider Emergency Medicine
DX: R07.9 Chest pain, unspecified (principal); I10 Essential (primary) hypertension; E78.5 Hyperlipidemia, unspecified; K21.9 Gastro-esophageal reflux disease without esophagitis; F17.210 Nicotine dependence, cigarettes, uncomplicated
CPT/HCPCS: 71046; 80048; 83735; 84484; 85025; 85379; 93005; 99283; A4216

== ENCOUNTER → 2025-10-13 | Outpatient (CLI) | payer MEDICARE, OTHER, SELFPAY ==
--- OUTSIDE RECORDS SUMMARY | 2025-10-13 09:43 | XMS RPT_ITS | CCD ---
Author Organization [facility] Care Team Providers Care Lehr Loader Name Role Phone Ernesto Villavicencio Referring Unavailable [...] Interpretation Reference Range Facility Comprehensive Metabolic Prof [facility] 10-24-2024 Albumin [Mass/Vol] 3.6 g/dL Normal 3.2-5.0 [facility] Comment on above: Order Comment: Order Date: 07/20/24 Order Info: [id number] - CMP Order Info: [id number] - LIPID Order Info: [id number] - PSA Performed By: #### L 500.4050, L500.4100, L501.9910 #### [facility] [address] [place], [address] Albumin/Globulin [Mass ratio] 1.0 {ratio} Normal 0.9-2.4 [facility] Comment on above: Order Comment: Order Date: 07/20/24 Order Info: 86-1 - CMP Order Info: [id number] - LIPID Order Info: [id number] - PSA Performed By: #### L 500.4050, L500.4100, L501.9910 #### [facility] [address] [place], [address] ALK P 109 U/L Normal 45-117 [facility] Comment on above: Order Comment: Order Date: 07/20/24 Order Info: 86-1 - CMP Order Info: [id number] - LIPID Order Info: [id number] - PSA Performed By: #### L 500.4050, L500.4100, [id number] #### [facility] [address] [place], [address] ALT [Catalytic activity/Vol] 43 U/L Normal 16-61 [facility] Comment on above: Order Comment: Order Date: 07/20/24 Order Info: 86-1 - CMP Order Info: [id number] - LIPID Order Info: [id number] - PSA Performed By: #### L 500.4050, L500.4100, [id number] #### [facility] [address] [place], [address] AST [Catalytic activity/Vol] 21 U/L Normal 15-37 [facility] Comment on above: Order Comment: Order Date: 07/20/24 Order Info: 785- - CMP Order Info: [id number] - LIPID Order Info: [id number] - PSA Performed By: #### L 500.4050, L500.4100, [id number] #### [facility] [address] [place], [address] Bilirubin [Mass/Vol] 0.60 mg/dL Normal 0.20-1.00 [facility] Comment on above: Order Comment: Order Date: 07/20/24 Order Info: 86-1 - CMP Order Info: [id number] - LIPID Order Info: 7-1 - PSA Result Comment: For patients on eltrombopag therapy, use of Dimension [place] TBIL is not recommended. Performed By: #### L 500.4050, L500.4100, L501.9910 #### [facility] [address] [place], [address] BUN/CRE 17.9 RATIO Normal 10-20 [facility] Comment on above: Order Comment: Order Date: 07/20/24 Order Info: 07-1 - CMP Order Info: [id number] - LIPID Order Info: [id number] - PSA Performed By: #### L 500.4050, L500.4100, L501.9910 #### [facility] [address] [place], [address] CA,Total 9.0 mg/dL Normal 8.5-10.1 [facility] Comment on above: Order Comment: Order Date: 07/20/24 Order Info: 0786- - CMP Order Info: [id number] - LIPID Order Info: [id number] - PSA Performed By: #### L 500.4050, L500.4100, [id number] #### [facility] [address] [place], [address] Chloride [Moles/Vol] 106 mmol/L Normal 98-107 [facility] Comment on above: Order Comment: Order Date: 07/20/24 Order Info: 0786- - CMP Order Info: [id number] - LIPID Order Info: [id number] - PSA Performed By: #### L 500.4050, L500.4100, [id number] #### [facility] [address] [place], [address] CO2 [Moles/Vol] 28.0 mmol/L Normal 21.0-32.0 [facility] Comment on above: Order Comment: Order Date: 07/20/24 Order Info: [id number] - CMP Order Info: [id number] - LIPID Order Info: [id number]- - PSA Performed By: #### L 500.4050, L500.4100, [id number] #### [facility] [address] [place], [address] Creatinine [Mass/Vol] 0.78 mg/dL Normal 0.70-1.30 [facility] Comment on above: Order Comment: Order Date: 07/20/24 Order Info: [id number] - CMP Order Info: [id number] - LIPID Order Info: [id number] - PSA Result Comment: The validity of the calculated GFR GFRAA in patients over 70 years has not been determined. Clinical correlation is essential. Performed By: #### L 500.4050, L500.4100, L501.9910 #### [facility] [address] [place], [address] EST GFR - AA 127 mL/min Normal >60 [facility] Comment on above: Order Comment: Order Date: 07/20/24 Order Info: [id number] - CMP Order Info: [id number] - LIPID Order Info: [id number] - PSA Result Comment: Afri can [place] GFR Calc Performed By: #### L 500.4050, L500.4100, L501.9910 #### [facility] [address] [place], [address] GAP 4 Low 5-15 [facility] Comment on above: Order Comment: Order Date: 07/20/24 Order Info: 0786- - CMP Order Info: [id number] - LIPID Order Info: [id number] - PSA Performed By: #### L 500.4050, L500.4100, [id number] #### [facility] [address] [place], [address] GFR/1.73 sq M.predicted among non-blacks MDRD (S/P/Bld) [Vol rate/Area] 105 mL/min/{1.73_m2} Normal >60 [facility] Comment on above: Order Comment: Order Date: 07/20/24 Order Info: 07- - CMP Order Info: - LIPID Order Info: [id number] - PSA Result Comment: Non- GFR Calc Performed By: #### L 500.4050, L500.4100, L501.9910 #### [facility] [address] [place], [address] Globulin (S) [Mass/Vol] 3.5 g/dL Normal 2.2-4.2 [facility] Comment on above: Order Comment: Order Date: 07/20/24 Order Info: [id number] - CMP Order Info: [id number] - LIPID Order Info: [id number] - PSA Performed By: #### L 500.4050, L500.4100, [id number] #### [facility] [address] [place], [address] Glucose [Mass/Vol] 97 mg/dL Normal 74-106 [facility] Comment on above: Order Comment: Order Date: 07/20/24 Order Info: [id number] - CMP Order Info: [id number] - LIPID Order Info: [id number] - PSA Performed By: #### L 500.4050, L500.4100, [id number] #### [facility] [address] [place], [address] Potassium [Moles/Vol] 3.8 mmol/L Normal 3.5-5.1 [facility] Comment on above: Order Comment: Order Date: 07/20/24 Order Info: [id number] - CMP Order Info: [id number] - LIPID Order Info: [id number] - PSA Performed By: #### L 500.4050, L500.4100, [id number] #### [facility] [address] [place], [address] Sodium [Moles/Vol] 138 mmol/L Normal 136-145 [facility] Comment on above: Order Comment: Order Date: 07/20/24 Order Info: 07- - CMP Order Info: [id number] - LIPID Order Info: [id number]- - PSA Performed By: #### L 500.4050, L500.4100, [id number] #### [facility] [address] [place], [address] T PROT 7.1 g/dL Normal 6.4-8.2 [facility] Comment on above: Order Comment: Order Date: 07/20/24 Order Info: 0786- - CMP Order Info: [id number] - LIPID Order Info: [id number] - PSA Performed By: #### L 500.4050, L500.4100, [id number] #### [facility] [address] [place], [address] Urea nitrogen [Mass/Vol] 14 mg/dL Normal 7-18 [facility] Comment on above: Order Comment: Order Date: 07/20/24 Order Info: 0786 - CMP Order Info: [id number] - LIPID Order Info: [id number] - PSA Performed By: #### L 500.4050, L500.4100, L501.9910 #### [facility] [address] [place], [address] Lipid Profileon 10-24-2024 Cholesterol [Mass/Vol] 170 mg/dL Normal 200 [facility] Comment on above: Order Comment: Order Date: 07/20/24 Order Info: 0786- - CMP Order Info: [id number] - LIPID Order Info: [id number] - PSA Result Comment: <200 mg/dL Desirable 200-240 mg/dL Borderline >240 mg/dL High Risk Performed By: #### L 500.4050, L500.4100, L501.9910 #### [facility] [address] [place], [address] Cholesterol in HDL [Mass/Vol] 40 mg/dL Normal [facility] Comment on above: Order Comment: Order Date: 07/20/24 Order Info: 0786- - CMP Order Info: [id number] - LIPID Order Info: [id number] - PSA Result Comment: The drugs N-Acetylcysteine and Metamizole may falsely depress this assay. Reference Range HDL <40 mg/dL Low HDL Cholesterol HDL >or= 60 mg/dL High HDL Cholesterol Performed By: #### L 500.4050, L500.4100, L501.9910 #### [facility] [address] [place], [address] Cholesterol in LDL [Mass/Vol] 110 mg/dL Normal 0-130 [facility] Comment on above: Order Comment: Order Date: 07/20/24 Order Info: [id number] - CMP Order Info: [id number] - LIPID Order Info: [id number] - PSA Performed By: #### L 500.4050, L500.4100, L501.9910 #### [facility] [address] [place], [address] Cholesterol in VLDL [Mass/Vol] 20 mg/dL Normal 5-40 [facility] Comment on above: Order Comment: Order Date: 07/20/24 Order Info: [id number] - CMP Order Info: [id number] - LIPID Order Info: [id number] - PSA Performed By: #### L 500.4050, L500.4100, [id number] #### [facility] [address] [place], [address] Triglyceride [Mass/Vol] 101 mg/dL Normal [facility] Comment on above: Order Comment: Order Date: 07/20/24 Order Info: [id number] - CMP Order Info: [id number] - LIPID Order Info: [id number]- - PSA Result Comment: The drugs N-Acetylcysteine and Metamizole may falsely depress this assay. Serum Triglycerides Reference Interval Normal <150 mg/dL Borderline high 150 - 199 mg/dL High 200 - 499 mg/dL Very High > or = 500 mg/dL Performed By: #### L 500.4050, L500.4100, L501.9910 #### [facility] [address] [place], [address] PSA,Total - Annual Screenon 10-24-2024 PSA,TOT SCREEN 0.59 ng/mL Normal 0.00-4.00 [facility] Comment on above: Order Comment: Order Date: 07/20/24 Order Info: [id number] - CMP Order Info: [id number] - LIPID Order Info: [id number] - PSA Result Comment: This test was performed using the TPSA assay method for the [employer] chemistry system. Values obtained with different assay methods cannot be used interchangably. When changing PSA assays in the course of monitoring a patient, additional sequential testing should be carried out to confirm baseline values. Performed By: #### L 500.4050, L500.4100, L501.9910 #### [facility] [address] [place], [address] Basophil percentageOrdered B y: Franky Villavicencio on 04-13-2023 Bilirubin [Mass/Vol] 0.30 mg/dL 0.20-1.00 [facility] Comment on above: For patients on eltr ombopag therapy, use of Dimension [place] TBIL is not recommended. Chloride [Moles/Vol] 107 mmol/L 98-107 [facility] Cholesterol [Mass/Vol] 187 mg/dL <200 [facility] Comment on above: <200 mg/dL Desirable 200-240 mg/dL Borderline >240 mg/dL High Risk Glucose [Mass/Vol] 80 mg/dL 74-106 [facility] Potassium [Moles/Vol] 3.8 mmol/L 3.5-5.1 [facility] Protein [Mass/Vol] 7.2 g/dL 6.4-8.2 [facility] Sodium [Moles/Vol] 137 mmol/L 136-145 [facility] Triglyceride [Mass/Vol] 170 mg/dL <199 [facility] Comment on above: The drugs N-Acetylcy steine and Metamizole may falsely depress this assay.Serum Triglycerides Reference Interval Normal <150 mg/dL Borderline high 150 - 199 mg/dL High 200 - 499 mg/dL Very High > or = 500 mg/dL Laboratory - Chemistry and C hemistry - challengeOrdered By: Franky Villavicencio on 04-13-2023 ALP [Catalytic activity/Vol] 115 U/L 45-117 [facility] ALT [Catalytic activity/Vol] 36 U/L 16-61 [facility] CO2 [Moles/Vol] 26.0 mmol/L 21.0-32.0 [facility] Globulin (S) [Mass/Vol] 3.5 g/dL 2.2-4.2 [facility] Urea nitrogen/Creatinine [Mass ratio] 16.7 mg/mg 10-20 [facility] No Panel InformationOrdered By: Franky Villavicencio on 04-13-2023 Estimated GFR (MDRD) Amer 118 mL/min >60 [facility] Comment on above: GFR Calc Estimated GFR (MDRD) Non-Af Amer 98 mL/min >60 [facility] Comment on above: Non- GFR Calc Prostate Specific Antigen Screen 0.57 ng/mL 0.00-4.00 [facility] Comment on above: This test was perfor med using the TPSA assay method for [employer] chemistry system. Values obtained with differentassay methods cannot be used interchangably.When changing PSA assays in the course of monitoring apatient, additional sequential testing should be carriedout to confirm baseline values. Serum or plasma albumin bridget urement (mass/volume)Ordered By: Franky Villavicencio on 04-13-2023 Albumin [Mass/Vol] 3.7 g/dL 3.2-5.0 [facility] Serum or plasma albumin/glob ulin mass ratioOrdered By: Franky Villavicencio on 04-13-2023 Albumin/Globulin [Mass ratio] 1.1 {ratio} 0.9-2.4 [facility] Serum or plasma calcium bridget urement (mass/volume)Ordered By: Franky Villavicencio on 04-13-2023 Calcium [Mass/Vol] 9.3 mg/dL 8.5-10.1 [facility] Serum or plasma cholesterol in HDL measurement (mass/volume)Ordered By: Franky Villavicencio on 04-13-2023 Cholesterol in HDL [Mass/Vol] 35 mg/dL >40 [facility] Comment on above: The drugs N-Acetylcy steine and Metamizole may falsely depress this assay. Reference Range HDL <40 mg/dL Low HDL Cholesterol HDL >or= 60 mg/dL High HDL Cholesterol Serum or plasma cholesterol in VLDL measurement (mass/volume)Ordered By: Franky Villavicencio on 04-13-2023 Cholesterol in VLDL [Mass/Vol] 34 mg/dL 5-40 [facility] Serum or plasma creatinine m easurement (mass/volume)Ordered By: Franky Villavicencio on 04-13-2023 Creatinine [Mass/Vol] 0.84 mg/dL 0.70-1.30 [facility] Comment on above: The validity of the calculated GFR & GFRAA in patients over 70 years has not been determined. Clinical correlation is essential. Serum or plasma low density lipoprotein (LDL) cholesterol measurement (mass/volume)Ordered By: Franky Villavicencio on 04-13-2023 Cholesterol in LDL [Mass/Vol] 118 mg/dL 0-130 [facility] Serum or plasma urea nitroge n measurement (mass/volume)Ordered By: Franky Villavicencio on 04-13-2023 Urea nitrogen [Mass/Vol] 14 mg/dL 7-18 [facility] Thin prep Papanicolaou smear with manual screeningOrdered By: Franky Villavicencio on 04-13-2023 Thin prep Papanicolaou smear with manual screening 25 U/L 15-37 [facility] Thin prep Papanicolaou smear with manual screening 4 5-15 [facility] Vital Signs Date Time Vital Sign Value Performing Clinician Danielle lovell 01-20-2022 10:03-040 Body height 172.72 cm [facility] Work Phone: 01-20-2022 10:03-0400 Body mass index (BMI) [Ratio] 28.1 kg/m2 [facility] Work Phone: 01-20-2022 10:03-0400 Body temperature 97.9 [degF] [facility] Work Phone: 01-20-2022 10:03-0400 Body weight 83.91 kg [facility] Work Phone: 01-20-2022 10:03-0400 Diastolic blood pressure 96 mm[Hg] [facility] Work Phone: 01-20-2022 10:03-0400 Heart rate 83 /min [facility] Work Phone: 01-20-2022 10:03-0400 Respiratory rate 16 /min [facility] ty [facility] Work Phone: 01-20-2022 10:03-0400 SaO2% (BldA) [Mass fraction] 97 % [facility] Work Phone: 01-20-2022 10:03-0400 Systolic blood pressure 206 mm[Hg] [facility] Work Phone: Encounters Encounter Date Encounter Type Care Provider Facility Start: 10-24-2024 End: 10-24-2024 ambulatory [facility] Facility:[facility] Start: 04-13-2023 End: 04-13-2023 ambulatory [facility] Work Phone: Start: 04-13-2023 End: 04-13-2023 Patient encounter procedure [facility] Start: 01-20-2022 End: 01-20-2022 Emergency department patient visit [facility] Procedures Date Procedure Procedure Detail Performing Clinician Start: 01-20-2022 Diagnostic radiograp hy of finger Plan of Treatment Date Care Activity Detail Author Patient Education ED Open Hand F racture (Adult) ED Laceration, Hand: All Closures ED Detached Fingernail or Toenail [facility] Work Phone: Patient referral [facility] Work Phone: Payers Date Payer Category Payer Self-pay [id number] 2016 Private Health Insurance [id number] 2010 Unknown [id number] Unknown [id number] Social History Date Type Detail Facility Start: 01-20-2022 Tobacco smoking stat us NHIS Unknown if ever smoked [facility] Start: 1955 Sex Assigned At Male [facility] Evaluation note Note Date & Type Note Facility Evaluation note No assessment information availa ble [facility] Work Phone: Hospital Discharge instructions Note Date & Type Note Facility Hospital Discharge instructions Additional Instructions Please follow-up with orthopedic office for removal of the splint for the nail. Call tomorrow or later today to make an appointment. The finger sutures (black ones) need to be removed in 10 days. [facility] Work Phone: Chief Complaint and Reason for [...] No January 20, 2022 10:17am Power of Art Consultant No January 20 10:17am Summary Purpose Additional [...] section and content) DATE CREATED AUTHOR 11/16/2024 [facility] FOR RECORDS PERTAINING TO PATIENTS WHO ARE [...] BE BASED ON THE PRIMARY CLINICAL RECORDS. [facility] [employer] [facility]. provides no warranty or guarantee of the accuracy or completeness of information in this document.
--- NOTE | 2025-10-13 09:45 | CT_ITS ---
PROCEDURE: LOW DOSE CT LUNG SCREENING 10/13/2025 REASON FOR EXAM: >30 YEAR SMOKER, CURRENT TECHNIQUE: Procedure Code: [id number] Modality: CT Procedure: LOW DOSE CT LUNG SCREENING Coronal and Sagittal reconstruction series were provided. One or more dose reduction techniques were used (e.g., Automated exposure control, adjustment of the mA and/or kV according to patient size, use of iterative reconstruction technique). REFERENCE LINK: [facility] Lung-RADS RADIATION DOSE SUMMARY: DLP: 73.74 mGycm COMPARISON: None available. FINDINGS: PULMONARY NODULES: (Only nodules >3mm are reported) Nodules described below are on series to unless otherwise specified. Pulmonary Nodules: No suspicious pulmonary nodules. Hardware:None available. Lymph Nodes:No lymphadenopathy. Heart and Vasculature:The heart is normal in size.The thoracic aorta and main pulmonary artery are normal in caliber. Scattered atherosclerotic calcification in the thoracic aorta. Coronary Artery Calcifications: Present. Lungs and Airways: No focal lung consolidation. The central airways are patent. Pleura:No pneumothorax or pleural effusion. Upper Abdomen:Small hiatal hernia. Bones:No aggressive osseous lesion. Degenerative changes in the thoracic spine. CT/Low Dose CT Lung Screening IMPRESSION: No suspicious pulmonary nodules. Coronary artery calcification (CAC) is present. Lung-RADS Category: 1 NEGATIVE. RECOMMEND 12-MONTH SCREENING LDCT. Reading Location: [id number]
== END | disposition home or self-care (01) ==
LOC: CT 09:41
PROVIDERS: PCP Family Medicine; Referring Provider Family Medicine; Visit Provider Family Medicine
DX: Z87.891 Personal history of nicotine dependence (principal)
CPT/HCPCS: 71271